=== PATIENT | male | born 1990 | race Caucasian/White ===

== ENCOUNTER 2021-09-24 07:49 | Day surgery (SDC) | payer OTHER, MEDICAID, SELFPAY ==
--- NOTE | 2021-09-23 13:09 | P.CONAN_ITS ---
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 Type 1 diabetes Social History Social History Patient Tobacco Use Status: Never used Tobacco Substance Use Type Other:: last marijuana hs Substance Use Frequency: Occasionally Are you DNR?: No Advance Directives: No Advance Directives Information Provided: Yes Meds Allergies Allergy/AdvReac Type Severity Reaction Status Date / Time tramadol Allergy Itching Verified 09/24/21 08:17 Home Medications Medication Instructions Recorded Confirmed Last Taken Type atorvastatin 40 mg tablet 1 tab PO DAILY 09/23/21 09/23/21 Unknown History blood sugar diagnostic (FreeStyle 09/23/21 09/23/21 Unknown History Lite Strips) blood-glucose meter (FreeStyle 09/23/21 09/23/21 Unknown History Lite Meter) blood-glucose sensor (Dexcom G6 09/23/21 09/23/21 Unknown History Sensor) blood-glucose transmitter (Dexcom 09/23/21 09/23/21 Unknown History G6 Transmitter) calcitriol 0.25 mcg capsule 1 cap PO DAILY 09/23/21 09/23/21 Unknown History carvedilol 12.5 mg tablet 1 tab PO BID 09/23/21 09/23/21 09/24/21 History gabapentin 100 mg capsule 3 cap PO TID 09/23/21 09/23/21 Unknown History insulin glargine-yfgn 100 unit/mL 48 unit subcut QAM 09/23/21 09/24/21 09/24/21 History (3 mL) subcutaneous pen (Semglee (insulin glargine-yfgn) Pen) lancets 28 gauge (FreeStyle 09/23/21 09/23/21 Unknown History Lancets) nifedipine 60 mg tablet,extended 1 tab PO DAILY 09/23/21 09/23/21 Unknown History release pen needle, diabetic 31 gauge x 09/23/21 09/23/21 Unknown History 3 (BD Ultra-Fine Mini Pen Needle) sertraline 100 mg tablet 1 tab PO DAILY 09/23/21 09/23/21 Unknown History torsemide 20 mg tablet 1 tab PO DAILY 09/23/21 09/23/21 Unknown History trazodone 50 mg tablet 1 tab PO BEDTIME 09/23/21 09/23/21 Unknown History Exam Exam Date and Time: September 23, 2021 1309 Narrative Narrative: EKG 07/2021 NSR @ 87 ECHO 04/2021 Nml LV size Mild conc LVH MIld reduced LV sys function LVEF 45-50% Nml RV size and function Mild MR Assessment and Plan Assessment Anesthesia Assessment: Chart Reviewed Documented by User: Thee Vale MD 09/24/21 10:51 HPI - Anesthesia Eval Consult details Narrative: 31yo M for Laparoscopic Insertion Peritoneal Dialysis Catheter No dialysis yet Last cardiac visit 04/2021 with change to BP meds d/t high BP (pt had run out of rx) Manual BP 195/120 on arrival to preop. Did not take Nifedipine per preop instructions. Will plan to give IV Hydral preop and proceed if able to achieve desirable BP control. 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 Type 1 diabetes Family History Family history of problems with anesthesia: No Surgical History History of Problems with Anesthesia: Yes Social History Social History Patient Tobacco Use Status: Never used Tobacco Substance Use Type Other:: last marijuana hs Substance Use Frequency: Occasionally Are you DNR?: No Advance Directives: No Advance Directives Information Provided: Yes Meds Allergies Allergy/AdvReac Type Severity Reaction Status Date / Time tramadol Allergy Itching Verified 09/24/21 08:17 Home Medications Medication Instructions Recorded Confirmed Last Taken Type atorvastatin 40 mg tablet 1 tab PO DAILY 09/23/21 09/23/21 Unknown [facility] 09/23/21 Unknown History Lite Strips) blood-glucose meter ([facility] 09/23/21 09/23/21 Unknown History Lite Meter) blood-glucose sensor (Dexcom G6 09/23/21 09/23/21 Unknown History Sensor) blood-glucose transmitter (Dexcom 09/23/21 09/23/21 Unknown History G6 Transmitter) calcitriol 0.25 mcg capsule 1 cap PO DAILY 09/23/21 09/23/21 Unknown History carvedilol 12.5 mg tablet 1 tab PO BID 09/23/21 09/23/21 09/24/21 History gabapentin 100 mg capsule 3 cap PO TID 09/23/21 09/23/21 Unknown History insulin glargine-yfgn 100 unit/mL 48 unit subcut QAM 09/23/21 09/24/21 09/24/21 History (3 mL) subcutaneous pen (Semglee (insulin glargine-yfgn) Pen) lancets 28 gauge (FreeStyle 09/23/21 09/23/21 Unknown History Lancets) nifedipine 60 mg tablet,extended 1 tab PO DAILY 09/23/21 09/23/21 Unknown History release pen needle, diabetic 31 gauge x 09/23/21 09/23/21 Unknown History 3/16 (BD Ultra-Fine Mini Pen Needle) sertraline 100 mg tablet 1 tab PO DAILY 09/23/21 09/23/21 Unknown History torsemide 20 mg tablet 1 tab PO DAILY 09/23/21 09/23/21 Unknown History trazodone 50 mg tablet 1 tab PO BEDTIME 09/23/21 09/23/21 Unknown History Exam Airway Mallampati Class: II TM Dist: >3cm Neck ROM: Full Assessment and Plan Assessment Anesthesia Assessment: Anesthesia Plan Discussed Final Anesthetic Review Family History of Problems with Anesthesia: No History of Problems with Anesthesia: Yes ASA Class: III Final Preanesthetic Review: No Changes in Pt Med Stat, Meds/Allgs Chart Reviewed, Consent Obtained/Reviewed and Anes Risks/Benef Reviewed Patient Risk: Intermediate Procedure Risk: Low Anesthetic Plan Anesthetic Plan: GA Disposition: Standard PACU
[2021-09-24] VITALS (14 sets, daily range): BP systolic 135–198; BP diastolic 87–123; PULSE 78–88; RESP 14–18; TEMP 36.4–36.6; O2SAT 96–99; BMI 20.4
[2021-09-24 08:19] LABS: Glucose, Whole Blood 182 mg/dL (60-115)
--- NOTE | 2021-09-24 08:31 | PC.NURSE ---
bp 198/123. manual 195/119. pt stated vomited and diarrhea one each this a.m. dr. rebolledo at bedside evaulating. pt denies chest pain. took coreg at 0730. afebrile
[2021-09-24 08:44] LABS: Anion Gap 19 (12-20); Carbon Dioxide 11 mmol/L (22-29); Chloride 114 mmol/L (96-108); Potassium 4.6 mmol/L (3.3-5.1); Sodium 139 mmol/L (135-145)
--- NOTE | 2021-09-24 08:55 | PC.NURSE ---
MD RAINES BY THE BEDSIDE EVALUATING PATIENT WITH ANESTHESIA.
[2021-09-24] MEDS: hydrALAZINE HCl 20 MG/ML VIAL 10 MG IVPUSH (09:14)
[2021-09-24] MEDS: 0.9 % Sodium Chloride 1,000 ML 50 ML IVCONT (09:19)
--- NOTE | 2021-09-24 11:53 | W.PM.OPN ---
Operative Note Operative Note Date of Service: 09/24/21 Narrative: Laparoscopic Insertion of Peritoneal Dialysis Catheter Pre-op Dx: Stage 5 CKD Post-op Dx: Stage 5 CKD Surgeon: Amy Kulkarni Procedure: Laparoscopic Insertion of Peritoneal Dialysis Catheter Anesthesia: GET and local Findings: Catheter positioned behind bladder and flushes well Procedure Summary: Patient was placed on the OR table in a supine position with both arms extended on padded arm boards. Patient was prepped and draped in a sterile fashion. A surgical timeout was performed. All incisions were infiltrated with local anesthesia. A Veress needle was inserted in the LUQ, midclavicular line of the abdomen. The abdomen was insufflated to a pressure of 15 mmHg. A 5mm visaport was inserted using a 5mm laparoscope. Subsequently, a 5mm port was inserted in the LLQ of the abdomen under direct visualization. An 8mm port was inserted left lateral to the umbilicus and entered the abdomen in the midline, just above the bladder. The PD catheter was inserted through this port and the internal cuff was positioned in the pre-peritoneal space. The other end of the catheter was brought out through a stab incision in the LLQ. The catheter flushed well. It was secured to the abdominal wall with a 2-0 silk tie, using a suture passer. The incisions were closed in layers after removing the trochars. The patient tolerated the procedure well.
[2021-09-24] MEDS: oxyCODONE HCl Immed Release 5 MG TABLET PO (12:32)
--- NOTE | 2021-09-24 12:54 | PHA.MEDREC ---
Pharmacy Consult ? Medication Reconciliation Pharmacy has completed the medication reconciliation. Reviewed med rec done by Elida Dickey
[2021-09-24] MEDS: NIFEdipine ER 60 MG TAB.ER.24 PO (13:11)
== END 2021-09-24 13:53 | disposition home or self-care (01) ==
PROVIDERS: Nurse Practitioner; PCP Internal Medicine; Visit Provider Transplant Surgery
PROC: (CPT 49324; principal; 2021-09-24 09:30)
DX: N18.5 Chronic kidney disease, stage 5 (principal); E10.22 Type 1 diabetes mellitus with diabetic chronic kidney disease; I13.0 Hypertensive heart and chronic kidney disease with heart failure and stage 1 through stage 4 chronic kidney disease, or unspecified chronic kidney disease; N18.4 Chronic kidney disease, stage 4 (severe); I50.9 Heart failure, unspecified; N17.9 Acute kidney failure, unspecified; Z79.4 Long term (current) use of insulin; Z79.899 Other long term (current) drug therapy; Z88.8 Allergy status to other drugs, medicaments and biological substances
CPT/HCPCS: 49324; 36415; 80051; 82947; C1752; J0690; J1170; J2370; J2405; J3010

== ENCOUNTER 2023-01-14 12:29 | Inpatient (IN) | payer OTHER, MEDICAID, SELFPAY ==
[2023-01-14] VITALS (10 sets, daily range): BP systolic 157–192; BP diastolic 66–108; PULSE 75–100; RESP 12–22; TEMP 32.6–37.1; O2SAT 70–100; BMI 23.3
--- NOTE | ~2023-01-14 | CT_ITS ---
EXAMINATION: CT HEAD WITHOUT CONTRAST CLINICAL INFORMATION: Unresponsive, hypoxia. COMPARISON: None TECHNIQUE: Contiguous axial imaging was performed from the skull base to vertex without intravenous administration of contrast. This CT examination was performed using dose optimization techniques as appropriate, variously including the following: *Automated exposure control *Adjustment of mA and/or kV according to patient size (this includes techniques or standardized protocols for targeted exams where dose is matched to indication/reason for exam; i.e. extremities or head) *Use of iterative reconstruction technique DLP: 804 mGy-cm FINDINGS: There is no evidence of acute intracranial hemorrhage or edematous territorial infarction. There is no abnormal attenuation within the brain parenchyma. Saba-white matter differentiation is preserved. The ventricles are normal in size and configuration. No evidence for obstructive hydrocephalus. No abnormal mass effect or midline shift. No extra-axial fluid collections. No acute soft tissue or osseous abnormalities. Mild mucosal thickening of the paranasal sinuses. No air-fluid levels. The mastoids and middle ear cavities are clear. CT/CT head/brain wo IV con IMPRESSION: No evidence of acute intracranial hemorrhage or edematous territorial infarction.
--- NOTE | ~2023-01-14 | CT_ITS ---
EXAMINATION: CT CHEST, ABDOMEN AND PELVIS WITHOUT CONTRAST CLINICAL INFORMATION: Unresponsive. Hypoxia. COMPARISON: None available. TECHNIQUE: Multidetector volumetric imaging was performed of the chest, abdomen and pelvis intravenous contrast. Oral contrast was not administered. Sagittal and coronal reformatted images were obtained on the technologist's workstation. This CT examination was performed using dose optimization techniques as appropriate, variously including the following: *Automated exposure control *Adjustment of mA and/or kV according to patient size (this includes techniques or standardized protocols for targeted exams where dose is matched to indication/reason for exam; i.e. extremities or head) *Use of iterative reconstruction technique DLP: 1977.67 mGy-cm FINDINGS: CHEST: CHEST WALL: Gynecomastia. Central vascular catheter terminates at the cavoatrial junction. AXILLA: No lymphadenopathy. MEDIASTINUM: Heart is normal in size. No mediastinal lymphadenopathy. No hilar lymphadenopathy. No pericardial effusion. CORONARY ARTERY CALCIFICATION: No significant coronary artery calcification appreciated on this exam. PLEURA: There is no pleural effusion. LUNGS: Few peribronchial nodules in the left lower lobe. Patchy airspace disease in the left lower lobe. Masslike consolidation measuring 3.3 2.9 x 2.9 cm with associated calcification in the medial right lower lobe with underlying cystic parenchymal changes. Central airways are patent. ABDOMEN AND PELVIS: ABDOMINAL AND PELVIC WALL: Unremarkable. LIVER AND BILIARY TREE: Unremarkable. GALLBLADDER: Unremarkable. PANCREAS: Unremarkable. SPLEEN: Unremarkable. ADRENAL GLANDS: Unremarkable. KIDNEYS AND URETERS: Nonobstructing bilateral renal calculi. No hydronephrosis. GASTROINTESTINAL TRACT: Mid small bowel wall thickening. No small bowel obstruction. Wall thickening of the splenic flexure through the sigmoid colon. Fecal impaction in the rectum. VASCULAR: Extensive arterial vascular calcifications. No abdominal aortic aneurysm. LYMPH NODES: Enlarged retroperitoneal, mesenteric and bilateral inguinal nodes. FREE FLUID: Small to moderate ascites. BLADDER: Decompressed with Hernandes catheter in place. PELVIC VISCERA: Unremarkable. OSSEOUS STRUCTURES: No destructive bone lesions. CT/CT abdomen pelvis wo IV con IMPRESSION: Small and large bowel wall thickening as described. Small to moderate ascites. Given the extensive arterial vascular calcification, bowel ischemia cannot be excluded on the basis of this examination. Masslike consolidation medial right lower lobe measuring 3.3 x 2.9 x 2.9 cm. Left lower lobe airspace disease with new peribronchial nodules. Aspiration pneumonia cannot be excluded. Advise clinical correlation and short-term goal follow-up imaging. Enlarged retroperitoneal, mesenteric and bilateral inguinal nodes.
--- NOTE | 2023-01-14 12:32 | ECG_ITS ---
Test Reason : UNRESPONSIVE Blood Pressure : / mmHG Vent. Rate : 093 BPM Atrial Rate : 093 BPM P-R Int : 160 ms QRS Dur : 110 ms QT Int : 398 ms P-R-T Axes : 061 047 058 degrees QTc Int : 494 ms Poor data quality, interpretation may be adversely affected Normal sinus rhythm Intra-ventricular conduction delay Otherwise normal ECG No previous ECGs available Referred By: rGicelda Ly Electronically Signed By:SKY SAHA MD
--- NOTE | 2023-01-14 12:35 | ED_ITS ---
HPI - Altered Mental Status General Chief Complaint: Altered Mental Status Stated Complaint: FOUND UNREPSONSIVE, HYPOGLYCEMIC Time Seen by Provider: 01/14/23 12:31 Source: family, EMS and old records reviewed Mode of arrival: EMS Limitations: altered mental status History of Present Illness HPI narrative: 33 yo male with history of DM1, ESRD previously on PD now appears to be on HD with dialysis catheter in right chest, s/p right BKA who presents to the ER from home via EMS after he was found unresponsive and hypoxic by his visiting nurse. Per EMS VNA spoke with the patient at 9:30 am and he was alert and normal. When she arrived around 11:30 she found him unresponsive on the couch. EMS was called and he was found hypoxic in the 70s, shallow breathing. His glucose was low. IV was established and he was given D10 and glucagon. He was placed on NRB O2 and brought to the ER for further evaluation. Patient arrives to the ER altered, lethargic but opens eyes to voice, nonverbal. Follows simple commands. POC 165. Rectal temp 91 degrees. He had bloody secretions in his mouth and required suctioning. MD complaint: altered mental status and decreased responsiveness Onset (ago): hour(s) Timing confirmed by: caregiver Severity: severe Context: diabetes Treatments prior to arrival: glucose and IV fluid Related Data Home Medications Medication Instructions Recorded Confirmed atorvastatin 40 mg tablet 1 tab PO DAILY 09/23/21 09/23/21 blood sugar diagnostic (FreeStyle 09/23/21 09/23/21 Lite Strips) blood-glucose meter (FreeStyle 09/23/21 09/23/21 Lite Meter kit) blood-glucose sensor (Dexcom G6 09/23/21 09/23/21 Sensor device) blood-glucose transmitter (Dexcom 09/23/21 09/23/21 G6 Transmitter device) calcitriol 0.25 mcg capsule 1 cap PO DAILY 09/23/21 09/23/21 carvedilol 12.5 mg tablet 1 tab PO BID 09/23/21 09/23/21 gabapentin 100 mg capsule 3 cap PO TID 09/23/21 09/23/21 insulin glargine-yfgn 100 unit/mL 48 unit subcut QAM 09/23/21 09/24/21 (3 mL) subcutaneous pen (Semglee (insulin glargine-yfgn) Pen) lancets 28 gauge (FreeStyle 09/23/21 09/23/21 Lancets) nifedipine 60 mg tablet,extended 1 tab PO DAILY 09/23/21 09/23/21 release pen needle, diabetic 31 gauge x 09/23/21 09/23/21 3/16 (BD Ultra-Fine Mini Pen Needle) sertraline 100 mg tablet 1 tab PO DAILY 09/23/21 09/23/21 torsemide 20 mg tablet 1 tab PO DAILY 09/23/21 09/23/21 trazodone 50 mg tablet 1 tab PO BEDTIME 09/23/21 09/23/21 Allergies Allergy/AdvReac Type Severity Reaction Status Date / Time tramadol Allergy Itching Verified 09/24/21 08:17 Review of Systems 2 Review of Systems: Yes Unobtainable due to mental condition and Unobtainable due to mental status [facility] Past Medical History Medical History (Updated 01/14/23 @ 16:38 by GAGAN Anglin) Insomnia Gastroparesis Cardiomyopathy Anxiety Major depressive disorder Type 1 diabetes 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 HTN (hypertension) Acute renal failure CKD (chronic kidney disease), stage IV Social History Social History Patient Tobacco Use Status: Never used Tobacco Advance Directives: Yes Advance Directives Information Provided: No Advance Directives on File: No Physical Exam ED Vital Signs: Vital Signs - 24 hr 01/14/23 12:36 01/14/23 13:05 01/14/23 14:00 Temperature 91.5 F L 90.6 F L 92.8 F L Pulse Rate 93 90 75 Respiratory Rate 16 22 H 18 Blood Pressure 191/106 H 181/107 H 167/100 H Pulse Oximetry 95 100 100 Oxygen Delivery Method Nasal Cannula Nasal Cannula Nasal Cannula Oxygen Flow Rate 3 3 01/14/23 15:00 01/14/23 15:28 Temperature 93.2 F L Pulse Rate 84 79 Respiratory Rate 15 12 Blood Pressure 169/95 H 160/99 H Pulse Oximetry 100 100 Oxygen Delivery Method Nasal Cannula Nasal Cannula Oxygen Flow Rate 3 3 BMI result Body Mass Index 23.3 Appearance: lethargic, disheveled male in his 30s, chronically ill appearing Head: normocephalic, atraumatic. Eyes: Pupils equal, round and reactive to light. ENT: Pharynx with blood secretions Neck: Normal inspection. Neck supple. CVS: Normal heart rate and rhythm. Pulses normal. right chest wall w/ HD catheter in place, dresssing falling off Respiratory: No respiratory distress. Breath sounds coarse throughout Abdomen: PD catheter in place in LLQ. Soft and nontender. +BS x4 Skin: Skin warm and dry. Normal skin color. Normal skin turgor. No rashes. Extremities: s/p right BKA, s/p left TMA, dry gangrene left heel Neuro/psych: lethargic, opens eyes to voice, nonverbal, follows simple commands, moves all extremities spontaneously Course Reevaluation(s) Reevaluation #1: spoke with patient's at the bedside - patient transitioned back to peritoneal dialysis early november. right chest HD cath not used since then. he has been experiencing more episodes of hypoglycemia w/ PD but usually is able to feel it and take some PO. he was in his usual state of health this morning. glucose high at 7am so given long acting insulin and 10 units of short acting per . no signs of symptoms of infection at home in the last 24 hours. Spoke with lamp shades supervisor at [facility] who is recommending possible placement of new temp HD line and holding off on HD given concern for sepsis. will d/w nephrology Time: 14:17 Reevaluation #2: Spoke with Dr. Ray from nephrology - recommending starting HD here using the HD line that is in place. mental status much improved temp up to 94.8 w/ alex harisher ready for admission Time: 15:06 Medications Administered Discontinued Medications Generic Name Dose Route Start Last Admin Trade Name Minnie PRN Reason Stop Dose Admin Sodium Chloride 1,000 mls @ 999 mls/hr 01/14/23 12:45 01/14/23 14:30 Ns IVCONT 01/14/23 13:45 Infused .Q1H1M CRYSTAL Infusion Calcium Gluconate 1 gm in 50 mls @ 50 mls/hr 01/14/23 12:48 01/14/23 14:00 Calcium Gluconate IV 01/14/23 13:47 Infused ONCE ONE Infusion Cefepime HCl 2 gm/ Sodium 50 mls @ 100 mls/hr 01/14/23 13:41 01/14/23 14:50 Chloride IV 01/14/23 14:10 Infused ONCE ONE Infusion Vancomycin HCl 1,500 mg/ 500 mls @ 333.333 mls/hr 01/14/23 14:15 01/14/23 15:23 Sodium Chloride IV 01/14/23 15:44 333.33 mls/hr ONCE ONE Administration Medical Decision Making Medical Decision Making [facility] Narrative: 33 yo male with history of DM1, ESRD on HD, s/p right BKA who presents to the ER for evaluation of unresponsiveness, hypoxia, and hypoglycemia. Glucose 160s on arrival. remains altered. Temp 90 rectally, 86 with temp pickens concern for infection. HD catheter without appropriate dressing ?line infection patient's mental status improved w/ warming. empiric abx cefepime and vanco given. records from [facility] reviewed spoke w/ who reports he has been on PD lately and NOT HD since Nov. Spoke with [facility] for transfer for PD, not accepting. Spoke w/ [facility] ICU who is recommending using HD line vs placing a new temp HD line Spoke w/ Nephrology who is ok w/ using HD line that is in place. CT Scan reviewed - 3cm RLL mass, ?aspiration. covered w/ abx. O2 weaned to 1L NC. no SOB. temp 95. ok for admission to the floor w/ close monitoring. Differential Diagnosis Differential Diagnoses: The differential diagnosis associated with the presentation includes sepsis, DKA, hypoglycemic seizure, uremia, pneumonia, intra-abdominal infection, encephalitis, UTI, infected dialysis catheter Admission/Observation Consideration of admission/observation: Escalation of care including admission/observation considered Consult Healthcare Provider Management of the patient was discussed with: Hospitalist and Fork Lift Technician Embroidery Finisher - recommending using HD catheter dr. abraham accepts Lab Data [facility] Lab Attestation statement: I reviewed the patient's lab results. no leukocytosis, mild anemia, uremia w/ elevated creatinine but K only 5.0 01/14/23 12:41 01/14/23 13:00 Labs: Lab Results 01/14/23 01/14/23 01/14/23 Range/Units 12:41 12:42 13:00 WBC 10.5 (4.8-10.8) X10*3/uL RBC 3.79 L (4.60-5.80) X10*6/uL Hgb 10.7 L (14.0-18.0) g/dl Hct 33.5 L (42.0-52.0) % MCV 88.4 (80.0-98.0) fL MCH 28.2 (27.0-33.0) pg MCHC 31.9 (31.0-36.0) g/dl RDW 13.8 (11.0-16.0) % Plt Count 178 (160-400) X10*3/uL MPV 10.2 (9.4-12.4) fL Immature Gran % (Auto) 0.8 H (0.0-0.4) % Neut % (Auto) 82.3 H (45-73) % Lymph % (Auto) 10.6 L (20-40) % [place] % (Auto) 4.1 (2-11) % Eos % (Auto) 1.7 (0-4) % Baso % (Auto) 0.5 (0-2) % Lymph # (Auto) 1.1 L (1.2-4.9) X10*3/uL [place] # (Auto) 0.4 (0.1-1.2) X10*3/uL Eos # (Auto) 0.2 (0.0-0.4) X10*3/uL Baso # (Auto) 0.1 (0.0-0.2) X10*3/uL Abs Immat Gran (auto) 0.08 H (0.00-0.03) X10*3/uL Absolute Neuts (auto) 8.6 H (2.0-8.3) x10*3/uL Absolute Nucleated RBC 0.000 (0.0-0.012) X10*3/uL Nucleated RBC % (auto) 0.0 (0.0-0.2) /100WBC VBG pH (7.32-7.43) VBG pCO2 mmHg VBG pO2 mmHg VBG HCO3 (22-26) mmol/L VBG O2 Saturation % VBG Base Excess mmol/L Sodium 142 (135-145) mmol/L Potassium 5.0 (3.3-5.1) mmol/L Chloride 102 (96-108) mmol/L Carbon Dioxide 17 L (22-29) mmol/L Anion Gap 28 H (12-20) BUN 56 H (9-16) mg/dL Creatinine 13.03 H* (0.5-1.4) mg/dL Estim Creat Clear Calc 8.8 Estimated GFR 4 POC Glucose (60-115) mg/dL Random Glucose 183 H (60-115) mg/dL Lactic Acid 0.6 (0.5-2.0) mmol/L Calcium 9.4 (8.4-10.2) mg/dL Magnesium 3.5 H* (1.6-2.6) mg/dL Total Bilirubin 0.4 (0.0-1.0) mg/dL Direct Bilirubin 0.2 (0.0-0.5) mg/dL AST 16 (5-37) U/L ALT 21 (0-40) U/L Alkaline Phosphatase 115 (39-117) U/L Ammonia 46 (13-55) umol/L Troponin I High Sens 16.8 (<3.5-35.0) ng/L Total Protein 7.6 (6.5-8.0) g/dL Albumin 3.8 (3.5-5.0) g/dL Lipase 101 H (8-78) U/L Beta-Hydroxybutyrate 0.32 H (0.02-0.27) mmol/L TSH 1.72 (0.32-4.0) uIU/mL Urine Color Urine Appearance Urine pH (5.0-9.0) Ur Specific [place] (1.005-1.025) Urine Protein (Neg-Trace) mg/dL Urine Glucose (UA) (Negative) mg/dL Urine Ketones (Negative) mg/dL Urine Blood (Negative) Urine Nitrite (Negative) Ur Leukocyte Esterase (Negative) Urine RBC (0-2) /HPF Urine WBC (0-5) /HPF Ur Squamous Epith Cells (0-2) /HPF Urine Bacteria (None Seen) Hyaline Casts (0-2) /LPF Salicylates < 5.0 L (15-30) mg/dL Urine Opiates Screen (Not Detect) Urine Fentanyl Screen (Not Detect) Acetaminophen < 17 (<30) mcg/mL Ur Barbiturates Screen (Not Detect) Ur Phencyclidine Scrn (Not Detect) Ur Amphetamines Screen (Not Detect) U Benzodiazepines Scrn (Not Detect) Urine Cocaine Screen (Not Detect) U Marijuana (THC) Screen (Not Detect) Ethyl Alcohol < 10 mg/dL Influenza Type A (PCR) NEGATIVE (Negative) Influenza Type B (PCR) NEGATIVE (Negative) RSV RNA Qual (PCR) NEGATIVE (Negative) SARS-CoV-2 RNA (RT-PCR) NEGATIVE (Negative) 01/14/23 01/14/23 01/14/23 Range/Units 13:09 13:10 13:40 WBC (4.8-10.8) X10*3/uL RBC (4.60-5.80) X10*6/uL Hgb (14.0-18.0) g/dl Hct (42.0-52.0) % MCV (80.0-98.0) fL MCH (27.0-33.0) pg MCHC (31.0-36.0) g/dl RDW (11.0-16.0) % Plt Count (160-400) X10*3/uL MPV (9.4-12.4) fL Immature Gran % (Auto) (0.0-0.4) % Neut % (Auto) (45-73) % Lymph % (Auto) (20-40) % [place] % (Auto) (2-11) % Eos % (Auto) (0-4) % Baso % (Auto) (0-2) % Lymph # (Auto) (1.2-4.9) X10*3/uL [place] # (Auto) (0.1-1.2) X10*3/uL Eos # (Auto) (0.0-0.4) X10*3/uL Baso # (Auto) (0.0-0.2) X10*3/uL Abs Immat Gran (auto) (0.00-0.03) X10*3/uL Absolute Neuts (auto) (2.0-8.3) x10*3/uL Absolute Nucleated RBC (0.0-0.012) X10*3/uL Nucleated RBC % (auto) (0.0-0.2) /100WBC VBG pH 7.37 (7.32-7.43) VBG pCO2 40 mmHg VBG pO2 159 mmHg VBG HCO3 23 (22-26) mmol/L VBG O2 Saturation 99.0 % VBG Base Excess -1.5 mmol/L Sodium (135-145) mmol/L Potassium (3.3-5.1) mmol/L Chloride (96-108) mmol/L Carbon Dioxide (22-29) mmol/L Anion Gap (12-20) BUN (9-16) mg/dL Creatinine (0.5-1.4) mg/dL Estim Creat Clear Calc Estimated GFR POC Glucose 188 H (60-115) mg/dL Random Glucose (60-115) mg/dL Lactic Acid (0.5-2.0) mmol/L Calcium (8.4-10.2) mg/dL Magnesium (1.6-2.6) mg/dL Total Bilirubin (0.0-1.0) mg/dL Direct Bilirubin (0.0-0.5) mg/dL AST (5-37) U/L ALT (0-40) U/L Alkaline Phosphatase (39-117) U/L Ammonia (13-55) umol/L Troponin I High Sens (<3.5-35.0) ng/L Total Protein (6.5-8.0) g/dL Albumin (3.5-5.0) g/dL Lipase (8-78) U/L Beta-Hydroxybutyrate (0.02-0.27) mmol/L TSH (0.32-4.0) uIU/mL Urine Color Yellow Urine Appearance Clear Urine pH 7.0 (5.0-9.0) Ur Specific [place] 1.020 (1.005-1.025) Urine Protein >=1000 (4+) H (Neg-Trace) mg/dL Urine Glucose (UA) >=1000 H (Negative) mg/dL Urine Ketones Negative (Negative) mg/dL Urine Blood Small (1+) H (Negative) Urine Nitrite Negative (Negative) Ur Leukocyte Esterase Negative (Negative) Urine RBC 11-20 H (0-2) /HPF Urine WBC 11-20 H (0-5) /HPF Ur Squamous Epith Cells 0-2 (0-2) /HPF Urine Bacteria None Seen (None Seen) Hyaline Casts 0-2 (0-2) /LPF Salicylates (15-30) mg/dL Urine Opiates Screen Not Detected (Not Detect) Urine Fentanyl Screen Not Detected (Not Detect) Acetaminophen (<30) mcg/mL Ur Barbiturates Screen Not Detected (Not Detect) Ur Phencyclidine Scrn Not Detected (Not Detect) Ur Amphetamines Screen Not Detected (Not Detect) U Benzodiazepines Scrn Not Detected (Not Detect) Urine Cocaine Screen Not Detected (Not Detect) U Marijuana (THC) Screen POSITIVE H (Not Detect) Ethyl Alcohol mg/dL Influenza Type A (PCR) (Negative) Influenza Type B (PCR) (Negative) RSV RNA Qual (PCR) (Negative) SARS-CoV-2 RNA (RT-PCR) (Negative) ABG Data Attestation ABG: I personally reviewed and interpreted this ABG as follows: Interpretation: no metabolic or respiratory derrangement Independent Interpretation I performed an independent interpretation of an: EKG and CT Scan Interpretation: ekg w/ sinus rhythm, HR 93, peaked T waves in V3-V5 CT head without acute bleed or edema CT chest with large right base mass/consolidation, agree w/ radiology read Radiology Impression Discussion of test interpretation with radiology: I have reviewed the radiologist's reading. Radiologist Impression: CT/CT head/brain wo IV con IMPRESSION: No evidence of acute intracranial hemorrhage or edematous territorial infarction. CT/CT chest wo IV con IMPRESSION: Small and large bowel wall thickening as described. Small to moderate ascites. Given the extensive arterial vascular calcification, bowel ischemia cannot be excluded on the basis of this examination. Masslike consolidation medial right lower lobe measuring 3.3 x 2.9 x 2.9 cm. Left lower lobe airspace disease with new peribronchial nodules. Aspiration pneumonia cannot be excluded. Advise clinical correlation and short-term goal follow-up imaging. Enlarged retroperitoneal, mesenteric and bilateral inguinal nodes. Independent Historian Clinical information obtained from an independent historian. History obtained from or confirmed by: Spouse and EMS External Record Review External record reviewed: Office record, Outpatient record, Prior outpatient labs, Prior outpatient radiology and Outside ED record Prescription Management I considered prescription management with: Antibiotic Chronic Conditions Patient?s care impacted by: Diabetes and Hypertension Social Determinants Patient?s care significantly limited by Social Determinants of Health including: Other Social Determinant of Health Critical Care Time Critical Care Time Critical Care Time: Yes Total Critical Care Time: 56 Attestation: I have personally provided critical care time exclusive of time spent on separately billable procedures. Time includes review of lab data, radiology results, discussion with consultants, and monitoring for potential decompensation. Intervention performed as documented. Discharge Plan Discharge Clinical Impression: Hypoglycemia, Acute metabolic encephalopathy, Mass of right lung Hypothermia Qualifiers: Encounter type: initial encounter Qualified Code(s): T68.XXXA - Hypothermia, initial encounter Patient Disposition: Admitted As Inpatient
[2023-01-14 12:47] LABS: MANUAL DIFF FLAG NO
[2023-01-14 12:48] LABS: Basophils Absolute Auto 0.1 X10*3/uL (0.0-0.2); Basophils Percent Auto 0.5 % (0-2); Eosinophils Absolute Auto 0.2 X10*3/uL (0.0-0.4); Eosinophils Percent Auto 1.7 % (0-4); Hematocrit 33.5 % (42.0-52.0); Hemoglobin 10.7 g/dl (14.0-18.0); Imm Gran Abs Auto 0.08 X10*3/uL (0.00-0.03); Imm Gran Pct Auto 0.8 % (0.0-0.4); Lymphocytes Absolute Auto 1.1 X10*3/uL (1.2-4.9); Lymphocytes Percent Auto 10.6 % (20-40); Mean Corpuscular HGB Conc 31.9 g/dl (31.0-36.0); Mean Corpuscular Hemoglobin 28.2 pg (27.0-33.0); Mean Corpuscular Volume 88.4 fL (80.0-98.0); Mean Platelet Volume 10.2 fL (9.4-12.4); Monocytes Absolute Auto 0.4 X10*3/uL (0.1-1.2); Monocytes Percent Auto 4.1 % (2-11); Neutrophils Absolute Auto 8.6 x10*3/uL (2.0-8.3); Neutrophils Percent Auto 82.3 % (45-73); Platelet Count 178 X10*3/uL (160-400); Red Blood Count 3.79 X10*6/uL (4.60-5.80); Red Cell Distribution Width 13.8 % (11.0-16.0); White Blood Count 10.5 X10*3/uL (4.8-10.8)
[2023-01-14] MEDS: Calcium Gluconate/NaCl,Iso-Osm 1 GM/50 ML PLAST..BAG IV (12:59)
[2023-01-14 13:01] LABS: Lactic Acid 0.6 mmol/L (0.5-2.0)
[2023-01-14] MEDS: 0.9 % Sodium Chloride 1,000 ML 999 ML IVCONT (13:05)
--- NOTE | 2023-01-14 13:06 | PC.NURSE ---
PATIENT HAD ORTEGA CATH TEMP SENSOR PLACED, READING 90.6 CORE TEMP WITH OUT PUT OF 35ML. PATIENT BILAT WRIST IV IN PLACE. PATIENT OPENS EYES WHEN BEING SPOKEN TO, DOES NOT SPEAK BACK ONLY MOANS. PATIENT RESPSONSIVE TO VERBAL STIMULI. UPON ARRIVAL TO ED GIVEN 4MG NARCAN INTRANASAL WITH NO EFFECT. PATIENT PLACED ON BAIRE HUGGER HIGH. MEDICATED PER MAY
[2023-01-14 13:09] LABS: Beta-Hydroxybutyrate 0.32 mmol/L (0.02-0.27)
[2023-01-14 13:10] LABS: Acetaminophen LAB < 17 mcg/mL (<30); Salicylate < 5.0 mg/dL (15-30)
[2023-01-14 13:11] LABS: Ammonia 46 umol/L (13-55)
[2023-01-14 13:14] LABS: Glucose, Whole Blood 188 mg/dL (60-115)
[2023-01-14 13:15] LABS: VBG Base Excess -1.5 mmol/L; VBG HCO3 23 mmol/L (22-26); VBG pCO2 40 mmHg; VBG pH 7.37 (7.32-7.43); VBG pO2 159 mmHg
[2023-01-14 13:15] LABS: Venous Blood Gas Refer to POC result
[2023-01-14 13:19] LABS: Troponin-I High Sensitivity 16.8 ng/L (<3.5-35.0)
[2023-01-14 13:37] LABS: Alanine Aminotransferase 21 U/L (0-40); Albumin Level 3.8 g/dL (3.5-5.0); Alkaline Phosphatase 115 U/L (39-117); Anion Gap 28 (12-20); Aspartate Amino Transferase 16 U/L (5-37); Bilirubin Direct 0.2 mg/dL (0.0-0.5); Bilirubin Total 0.4 mg/dL (0.0-1.0); Blood Urea Nitrogen 56 mg/dL (9-16); Calcium 9.4 mg/dL (8.4-10.2); Carbon Dioxide 17 mmol/L (22-29); Chloride 102 mmol/L (96-108); Creatinine Clr Calc Pharmacy 8.8; Estimated Glomerular Filt Rate 4; Ethanol < 10 mg/dL; Glucose Random 183 mg/dL (60-115); Lipase 101 U/L (8-78); Magnesium 3.5 mg/dL (1.6-2.6); Sodium 142 mmol/L (135-145); Total Protein 7.6 g/dL (6.5-8.0)
[2023-01-14 13:43] LABS: TSH reflex Free T4 1.72 uIU/mL (0.32-4.0)
[2023-01-14 13:49] LABS: Appearance Urine Clear; Color Urine Yellow; Glucose Urine UA >=1000 mg/dL (Negative); Leukocyte Esterase Urine Negative (Negative); Nitrite Urine Negative (Negative); UMIC TRIGGER UACC YES; Urine Blood Small (1+) (Negative); Urine Ketones Negative (Negative); Urine Protein >=1000 (4+) mg/dL (Neg-Trace)
[2023-01-14 13:57] LABS: Influenza A PCR NEGATIVE (Negative); Influenza B PCR NEGATIVE (Negative); Resp Syncy Virus RNA Qual PCR NEGATIVE (Negative); SARS COV2 PCR INHOUSE NEGATIVE (Negative)
[2023-01-14 14:01] LABS: Amphetamine Screen Urine Not Detected (Not Detect); Barbiturates, Urine Not Detected (Not Detect); Benzodiazepines Screen Urine Not Detected (Not Detect); Cannabinoid Screen Urine POSITIVE (Not Detect); Cocaine Screen Urine Not Detected (Not Detect); Fentanyl, urine Not Detected (Not Detect); Opiate Screen Urine Not Detected (Not Detect); Phencyclidine Screen Urine Not Detected (Not Detect)
[2023-01-14 14:06] LABS: Bacteria Urine None Seen (None Seen); Hyaline Casts Urine 0-2 /LPF (0-2); Squamous Epithelial Cell Urine 0-2 /HPF (0-2); UACC Culture Trigger YES
[2023-01-14] MEDS: cefEPime HCl 2 GM in 0.9 % Sodium Chloride 50 ML IV (14:15)
[2023-01-14] MEDS: vancomycin HCL 1,500 MG in 0.9 % Sodium Chloride 500 ML 333.33 MG IV (15:23)
[2023-01-14 16:43] LABS: Glucose, Whole Blood 105 mg/dL (60-115)
--- NOTE | 2023-01-14 17:03 | P.HPHOSP_ITS ---
History of Present Illness Date of Service: 01/14/23 Chief Complaint: Hypoglycemia 33 yo male with history of DM1, ESRD previously on PD now appears to be on HD with dialysis catheter in right chest, s/p right BKA who presents to the ER from home via EMS after he was found unresponsive and hypoxic by his visiting nurse. Per EMS VNA spoke with the patient at 9:30 am and he was alert and normal. When she arrived around 11:30 she found him unresponsive on the couch. EMS was called and he was found hypoxic in the 70s, shallow breathing. His glucose was low. IV was established and he was given D10 and glucagon. He was placed on NRB O2 and brought to the ER for further evaluation. Upon discussing with , patient's sugars have been elevated with peritoneal dialysis which have been expected. Insulin was adjusted (long-acting.) This a.m. she gave instructed dose insulin and later that morning was found unresponsive and hypotensive by EMS. He received dextrose in the rader placed on a non-rebreather and presented to the emergency room. Upon presentation sugars were normal however rectal temp was 91 degrees. He was placed on the Alma Hugger. The time of admission temperature is approximately [address] done in the ER showed masslike consolidation in the medial right lower lobe suspicious for aspiration pneumonia. 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 Glucose (Glucose Gel 15 Gm Gel..Gram.) 15 gm PO Q15M PRN; Protocol PRN Reason: per Hypoglycemia Standing Ord. Heparin Sodium (Porcine) (Heparin Sodium,Porcine 5,000 Unit/Ml Vial) 5,000 unit SUBCUT Q12H [facility] Insulin Human Lispro (Insulin Lispro 100 Unit/Ml 3 Ml Vial) 0 unit SUBCUT QIDACHS [facility]; Protocol Sodium Chloride (0.9 % Sodium Chloride Flush 3 Ml Syringe) 3 ml IVFLUSH QSHIFT [facility] Home Medications Medication Instructions Recorded Confirmed Last Taken Type atorvastatin 40 mg tablet 1 tab PO DAILY 09/23/21 09/23/21 Unknown History blood sugar diagnostic (FreeStyle 09/23/21 09/23/21 Unknown History Lite Strips) [facility] 09/23/21 Unknown History Lite Meter kit) blood-glucose sensor (Dexcom G6 09/23/21 09/23/21 Unknown History Sensor device) blood-glucose transmitter (Dexcom 09/23/21 09/23/21 Unknown History G6 Transmitter device) calcitriol 0.25 mcg capsule 1 cap PO DAILY 09/23/21 09/23/21 Unknown History carvedilol 12.5 mg tablet 1 tab PO BID 09/23/21 09/23/21 09/24/21 History gabapentin 100 mg capsule 3 cap PO TID 09/23/21 09/23/21 Unknown History insulin glargine-yfgn 100 unit/mL 48 unit subcut QAM 09/23/21 09/24/21 09/24/21 History (3 mL) subcutaneous pen (Semglee (insulin glargine-yfgn) Pen) lancets 28 gauge (FreeStyle 09/23/21 09/23/21 Unknown History Lancets) nifedipine 60 mg tablet,extended 1 tab PO DAILY 09/23/21 09/23/21 Unknown History release pen needle, diabetic 31 gauge x 09/23/21 09/23/21 Unknown History 06/10 (BD Ultra-Fine Mini Pen Needle) sertraline 100 mg tablet 1 tab PO DAILY 09/23/21 09/23/21 Unknown History torsemide 20 mg tablet 1 tab PO DAILY 09/23/21 09/23/21 Unknown History trazodone 50 mg tablet 1 tab PO BEDTIME 09/23/21 09/23/21 Unknown History Physical Exam 2 Vital Signs and Narrative: Vital Signs: Last Vital Signs Temp 94.8 F L 01/14/23 16:35 Pulse 82 01/14/23 16:35 Resp 14 01/14/23 16:35 BP 190/91 H 01/14/23 16:35 Pulse Ox 100 01/14/23 16:35 O2 Del Method Nasal Cannula 01/14/23 15:28 O2 Flow Rate 3 01/14/23 15:28 Oxygen Flow Rate 2 01/14/23 12:36 BMI result Body Mass Index 23.3 Const: Other: Somnolent but arousable. No acute distress Chest: Other: Hemodialysis catheter right chest wall Resp: Other: Diminished but clear all rader no rales rhonchi or wheezes Cardio: Other: No S4; positive S1-S2; no S3 murmurs rubs or gallops GI: Other: Soft nontender nondistended normoactive bowel sounds. Peritoneal dialysis catheter and left lower quadrant. Site clean dry and intact Extrem: Other: Right BKA; left TMA Results Labs 01/14/23 12:41 01/14/23 13:00 Labs: Laboratory Results - last 24 hr 01/14/23 01/14/23 01/14/23 12:41 12:42 13:00 MCV 88.4 MCH 28.2 MCHC 31.9 RDW 13.8 Plt Count 178 MPV 10.2 Immature Gran % (Auto) 0.8 H Neut % (Auto) 82.3 H Lymph % (Auto) 10.6 L Esmeralda % (Auto) 4.1 Eos % (Auto) 1.7 Baso % (Auto) 0.5 Lymph # (Auto) 1.1 L Esmeralda # (Auto) 0.4 Eos # (Auto) 0.2 Baso # (Auto) 0.1 Abs Immat Gran (auto) 0.08 H Absolute Neuts (auto) 8.6 H Absolute Nucleated RBC 0.000 Nucleated RBC % (auto) 0.0 VBG pH VBG pCO2 VBG pO2 VBG HCO3 VBG O2 Saturation VBG Base Excess Anion Gap 28 H Estim Creat Clear Calc 8.8 Estimated GFR 4 POC Glucose Random Glucose 183 H Lactic Acid 0.6 Calcium 9.4 Magnesium 3.5 H* Total Bilirubin 0.4 Direct Bilirubin 0.2 AST 16 ALT 21 Alkaline Phosphatase 115 Ammonia 46 Total Protein 7.6 Albumin 3.8 Lipase 101 H Beta-Hydroxybutyrate 0.32 H TSH 1.72 Urine Color Urine Appearance Urine pH Ur Specific [place] Urine Protein Urine Glucose (UA) Urine Ketones Urine Blood Urine Nitrite Ur Leukocyte Esterase Urine RBC Urine WBC Ur Squamous Epith Cells Urine Bacteria Hyaline Casts Salicylates < 5.0 L Urine Opiates Screen Urine Fentanyl Screen Acetaminophen < 17 Ur Barbiturates Screen Ur Phencyclidine Scrn Ur Amphetamines Screen U Benzodiazepines Scrn Urine Cocaine Screen U Marijuana (THC) Screen Ethyl Alcohol < 10 Influenza Type A (PCR) NEGATIVE Influenza Type B (PCR) NEGATIVE RSV RNA Qual (PCR) NEGATIVE SARS-CoV-2 RNA (RT-PCR) NEGATIVE 01/14/23 01/14/23 01/14/23 13:09 13:10 13:40 MCV MCH MCHC RDW Plt Count MPV Immature Gran % (Auto) Neut % (Auto) Lymph % (Auto) Esmeralda % (Auto) Eos % (Auto) Baso % (Auto) Lymph # (Auto) Esmeralda # (Auto) Eos # (Auto) Baso # (Auto) Abs Immat Gran (auto) Absolute Neuts (auto) Absolute Nucleated RBC Nucleated RBC % (auto) VBG pH 7.37 VBG pCO2 40 VBG pO2 159 VBG HCO3 23 VBG O2 Saturation 99.0 VBG Base Excess -1.5 Anion Gap Estim Creat Clear Calc Estimated GFR POC Glucose 188 H Random Glucose Lactic Acid Calcium Magnesium Total Bilirubin Direct Bilirubin AST ALT Alkaline Phosphatase Ammonia Total Protein Albumin Lipase Beta-Hydroxybutyrate TSH Urine Color Yellow Urine Appearance Clear Urine pH 7.0 Ur Specific [place] 1.020 Urine Protein >=1000 (4+) H Urine Glucose (UA) >=1000 H Urine Ketones Negative Urine Blood Small (1+) H Urine Nitrite Negative Ur Leukocyte Esterase Negative Urine RBC 11-20 H Urine WBC 11-20 H Ur Squamous Epith Cells 0-2 Urine Bacteria None Seen Hyaline Casts 0-2 Salicylates Urine Opiates Screen Not Detected Urine Fentanyl Screen Not Detected Acetaminophen Ur Barbiturates Screen Not Detected Ur Phencyclidine Scrn Not Detected Ur Amphetamines Screen Not Detected U Benzodiazepines Scrn Not Detected Urine Cocaine Screen Not Detected U Marijuana (THC) Screen POSITIVE H Ethyl Alcohol Influenza Type A (PCR) Influenza Type B (PCR) RSV RNA Qual (PCR) SARS-CoV-2 RNA (RT-PCR) 01/14/23 16:37 MCV MCH MCHC RDW Plt Count MPV Immature Gran % (Auto) Neut % (Auto) Lymph % (Auto) Esmeralda % (Auto) Eos % (Auto) Baso % (Auto) Lymph # (Auto) Esmeralda # (Auto) Eos # (Auto) Baso # (Auto) Abs Immat Gran (auto) Absolute Neuts (auto) Absolute Nucleated RBC Nucleated RBC % (auto) VBG pH VBG pCO2 VBG pO2 VBG HCO3 VBG O2 Saturation VBG Base Excess Anion Gap Estim Creat Clear Calc Estimated GFR POC Glucose 105 Random Glucose Lactic Acid Calcium Magnesium Total Bilirubin Direct Bilirubin AST ALT Alkaline Phosphatase Ammonia Total Protein Albumin Lipase Beta-Hydroxybutyrate TSH Urine Color Urine Appearance Urine pH Ur Specific [place] Urine Protein Urine Glucose (UA) Urine Ketones Urine Blood Urine Nitrite Ur Leukocyte Esterase Urine RBC Urine WBC Ur Squamous Epith Cells Urine Bacteria Hyaline Casts Salicylates Urine Opiates Screen Urine Fentanyl Screen Acetaminophen Ur Barbiturates Screen Ur Phencyclidine Scrn Ur Amphetamines Screen U Benzodiazepines Scrn Urine Cocaine Screen U Marijuana (THC) Screen Ethyl Alcohol Influenza Type A (PCR) Influenza Type B (PCR) RSV RNA Qual (PCR) SARS-CoV-2 RNA (RT-PCR) Imaging Radiologist's Impressions: Impressions Abdomen/Pelvis CT 01/14/23 14:38 IMPRESSION: Small and large bowel wall thickening as described. Small to moderate ascites. Given the extensive arterial vascular calcification, bowel ischemia cannot be excluded on the basis of this examination. Masslike consolidation medial right lower lobe measuring 3.3 x 2.9 x 2.9 cm. Left lower lobe airspace disease with new peribronchial nodules. Aspiration pneumonia cannot be excluded. Advise clinical correlation and short-term goal follow-up imaging. Enlarged retroperitoneal, mesenteric and bilateral inguinal nodes. Chest CT 01/14/23 14:38 IMPRESSION: Small and large bowel wall thickening as described. Small to moderate ascites. Given the extensive arterial vascular calcification, bowel ischemia cannot be excluded on the basis of this examination. Masslike consolidation medial right lower lobe measuring 3.3 x 2.9 x 2.9 cm. Left lower lobe airspace disease with new peribronchial nodules. Aspiration pneumonia cannot be excluded. Advise clinical correlation and short-term goal follow-up imaging. Enlarged retroperitoneal, mesenteric and bilateral inguinal nodes. Head CT 01/14/23 14:38 IMPRESSION: No evidence of acute intracranial hemorrhage or edematous territorial infarction. Assessment and Plan (1) Hypoglycemia: Status: Acute (2) Hypothermia: Qualifiers: Encounter type: initial encounter Qualified Code(s): T68.XXXA - Hypothermia, initial encounter Status: Acute (3) Pneumonia: Qualifiers: Pneumonia type: aspiration pneumonia Aspiration pneumonia type: u nspecified Laterality: right Status: Acute (4) End-stage renal disease on hemodialysis: Status: Acute Plan 33-year-old male with end-stage renal disease secondary to type 1 diabetes presents with hypoglycemic episode. states they were transition to peritoneal dialysis as a trial; sugars have increased as expected with peritoneal dialysis therefore long-acting insulin was increased. states patient got recommended dose of insulin this morning it was fine; VNA came patient was found unresponsive. When EMS arrived he was found to be hypoglycemic and given dextrose with good results. He was hypoxic and placed on a non-rebreather and transmitted to emergency room. In the emergency room he was found to be hypothermic and placed on a Alma Hugger with good results. CT of the chest demonstrated a right-sided mass consistent with aspiration 1. Aspiration pneumonia with hypothermia (slowly resolving) -continue Alma Hugger and directed temp greater than 97.5 times 2 -given vancomycin and cefepime in the ER. Will continue vancomycin and cefepime renally dosed -supplemental O2 to maintain sats greater than or equal to 90% 2. Type 1 diabetes -will cover with lispro correctional scale; will hold long-acting insulin until appropriate -ADA diet 3. ESRD on HD (blood cultures x2 taken. ER discuss with Renal wishes to do hemodialysis through port in a.m..) -consult nephrology -follow renals/divalent -HD in a.m. at the discretion of Nephrology -cefepime dose can be adjusted based on frequency of dialysis in a.m. 4. Hypertension -poorly controlled however question related to initial presentation -follow clinically; may utilize hydralazine as needed. -restart home regimen in a.m. 5. Peripheral vascular disease forward/status post amputation with phantom pain -utilizes Dilaudid at home as needed -will prescribe on a p.r.n. basis while in house Full code Heparin (renally dosed) Requires at least 2 midnights going forward of inpatient hospitalization to treat aspiration pneumonia with IV antibiotics and to utilize hemodialysis in favor a peritoneal dialysis. This cannot be achieved a lesser acute facility Time Spent With Patient Time: Total time managing care of this patient today ____ minutes. Quality Stroke Does the patient have a stroke diagnosis?: No VTE Prior VTE?: No VTE Risk Level:: Medical - moderate - high VTE Device Contraindication: Treatment Not Indicated VTE Drug Contraindication: N/A - Med Ordered
[2023-01-14] MEDS: Heparin Sodium,Porcine 5,000 UNIT/ML VIAL 5000 UNIT SUBCUT (17:39)
--- NOTE | 2023-01-14 17:44 | PC.NURSE ---
patient has become increasingly more alert, able to participate in his medical care, patients states he only urinates once a day, patient bag was emptied after pickens placement and new 10ml urine in bag. patient on [facility] core temp 95.9. patient ate turkey sandwich, drank orange juice and given water pitcher. call kelly within reach, no signs of distress
--- NOTE | 2023-01-14 19:12 | PHA.MEDREC ---
Pharmacy Consult ? Medication Reconciliation Pharmacy has completed the medication reconciliation. Per spouse, pt's doxazosin increased to 4 mg bedtime, nifedipine is 30 mg bid, and torsemide is 40 mg daily
--- NOTE | 2023-01-14 20:01 | PC.NURSE ---
This RN attempt to call report. RN on [facility] unavailable.
--- NOTE | 2023-01-14 20:02 | MHC.EDTECH ---
PATIENT WAS A 2 ASST TRANSFER TO BEDSIDE COMMODE ,PT HAD LARGE AMOUNT OF SOFT DARK STOOL ,CARE GIVEN ,PT BACK IN BED WATCHING TELEVISION .
[2023-01-14 20:53] LABS: Glucose, Whole Blood 83 mg/dL (60-115)
[2023-01-14] MEDS: carvediloL 25 MG TABLET PO (21:45)
[2023-01-14] MEDS: Doxazosin Mesylate 2 MG TABLET 4 MG PO (21:46)
[2023-01-14] MEDS: Gabapentin 300 MG CAPSULE PO (21:47)
[2023-01-14] MEDS: traZODone HCL 50 MG TABLET PO (21:47)
[2023-01-14] MEDS: HYDROmorphone HCl 2 MG TABLET PO (21:47)
[2023-01-14] MEDS: NIFEdipine ER 30 MG TAB.ER.24 PO (21:47)
[2023-01-14] MEDS: 0.9 % Sodium Chloride Flush 3 ML SYRINGE IVFLUSH ×2 (21:48→21:55)
[2023-01-14] MEDS: LORazepam 0.5 MG TABLET PO (21:55)
[2023-01-15] VITALS (9 sets, daily range): BP systolic 156–178; BP diastolic 82–95; PULSE 84–109; RESP 14–20; TEMP 36.2–37.3; O2SAT 79–100
[2023-01-15] MEDS: Sacubitril/Valsartan 97/103 1 TAB TABLET PO ×3 (00:38→21:11)
[2023-01-15] MEDS: Dextrose 50 % 25 GM/50 ML SYRINGE IVPUSH (05:58)
--- NOTE | 2023-01-15 06:06 | PM.EVENT ---
Event Note Date of Service: 01/15/23 Event Note: Rapid response was called on the patient as he was unresponsive. Patient was sweaty and unresponsive upon arrival. POC glucose was 16. Received IV dextrose D50 push with improvement in POC glucose and mentation. Closely monitor blood sugar with repeat POC glucose in 15 minutes. Time Spent With Patient Time: Total time managing care of this patient today ____ minutes.
[2023-01-15 06:22] LABS: Glucose, Whole Blood 109 mg/dL (60-115)
[2023-01-15 06:22] LABS: Glucose, Whole Blood 92 mg/dL (60-115)
[2023-01-15 06:22] LABS: Glucose, Whole Blood 16 mg/dL (60-115)
[2023-01-15 06:29] LABS: MANUAL DIFF FLAG NO
[2023-01-15 06:37] LABS: Basophils Absolute Auto 0.1 X10*3/uL (0.0-0.2); Basophils Percent Auto 0.4 % (0-2); Eosinophils Absolute Auto 0.2 X10*3/uL (0.0-0.4); Eosinophils Percent Auto 1.2 % (0-4); Hematocrit 29.8 % (42.0-52.0); Hemoglobin 9.7 g/dl (14.0-18.0); Imm Gran Abs Auto 0.08 X10*3/uL (0.00-0.03); Imm Gran Pct Auto 0.6 % (0.0-0.4); Lymphocytes Absolute Auto 0.7 X10*3/uL (1.2-4.9); Lymphocytes Percent Auto 5.5 % (20-40); Mean Corpuscular HGB Conc 32.6 g/dl (31.0-36.0); Mean Corpuscular Hemoglobin 28.4 pg (27.0-33.0); Mean Corpuscular Volume 87.4 fL (80.0-98.0); Mean Platelet Volume 10.3 fL (9.4-12.4); Monocytes Absolute Auto 0.4 X10*3/uL (0.1-1.2); Monocytes Percent Auto 2.8 % (2-11); Neutrophils Absolute Auto 11.3 x10*3/uL (2.0-8.3); Neutrophils Percent Auto 89.5 % (45-73); Platelet Count 176 X10*3/uL (160-400); Red Blood Count 3.41 X10*6/uL (4.60-5.80); Red Cell Distribution Width 13.9 % (11.0-16.0); White Blood Count 12.7 X10*3/uL (4.8-10.8)
[2023-01-15 06:40] LABS: Glucose, Whole Blood 83 mg/dL (60-115)
[2023-01-15 06:51] LABS: Alanine Aminotransferase 16 U/L (0-40); Albumin Level 3.4 g/dL (3.5-5.0); Alkaline Phosphatase 96 U/L (39-117); Anion Gap 28 (12-20); Aspartate Amino Transferase 10 U/L (5-37); Bilirubin Total 0.3 mg/dL (0.0-1.0); Blood Urea Nitrogen 65 mg/dL (9-16); Calcium 9.2 mg/dL (8.4-10.2); Carbon Dioxide 19 mmol/L (22-29); Chloride 100 mmol/L (96-108); Creatinine Clr Calc Pharmacy 8.2; Estimated Glomerular Filt Rate 4; Glucose Random 85 mg/dL (60-115); Potassium 5.1 mmol/L (3.3-5.1); Sodium 142 mmol/L (135-145); Total Protein 6.5 g/dL (6.5-8.0)
[2023-01-15 07:22] LABS: Glucose, Whole Blood 75 mg/dL (60-115)
[2023-01-15] MEDS: Dextrose 5 % and Lactated Ring 1,000 ML 100 ML IVCONT ×2 (07:31→17:35)
--- NOTE | 2023-01-15 07:31 | PC.NURSE ---
Pt. admitted at approx. 2044 from ED via stretcher; Alert and oriented x3. Pt. denies any sx at this time and states he is aware when POC getting low. Pt. POC at hs 81; PT. received orange juice and declined a snack. Pt. denied dyspnea overnight. Afebrile and NSR to ST low 100's on playground monitor. Pt. awakened easily to voice overnight. Pt. heard snoring in room at 0550 and unable to awaken pt. by sternal rub and pt. profusely diaphoretc. POC at 0555 was 16. Rapid Response also called and team at bedside including Dr. Díaz. Pt. given IV Dextrose 50% as ordered and pt. awakened but slowly. 0602 POC 109-Dr. Díaz aware. POC at [address] Díaz recheck POC at 0635. That POC was 83, reported to Dr. Díaz and to recheck POC at 0715, for which day RN notified of task. Pt. remains awake but quiet affect. Pt. given OJ at 0700. Handover to Neo FLETCHER.
[2023-01-15 08:59] LABS: Glucose, Whole Blood 116 mg/dL (60-115)
[2023-01-15] MEDS: Atorvastatin Calcium 40 MG TABLET PO (09:04)
[2023-01-15] MEDS: Gabapentin 300 MG CAPSULE PO ×2 (09:04→21:10)
[2023-01-15] MEDS: Torsemide 20 MG TABLET 40 MG PO (09:04)
[2023-01-15] MEDS: Sertraline HCL 100 MG TABLET PO (09:04)
[2023-01-15] MEDS: Clopidogrel Bisulfate 75 MG TABLET PO (09:04)
[2023-01-15] MEDS: carvediloL 25 MG TABLET PO ×2 (09:04→21:11)
[2023-01-15] MEDS: NIFEdipine ER 30 MG TAB.ER.24 PO ×2 (09:04→21:12)
[2023-01-15] MEDS: Omeprazole 20 MG CAPSULE.DR PO (09:04)
[2023-01-15] MEDS: Heparin Sodium,Porcine 5,000 UNIT/ML VIAL 5000 UNIT SUBCUT ×2 (09:05→17:25)
[2023-01-15 09:55] LABS: Glucose, Whole Blood 128 mg/dL (60-115)
[2023-01-15 11:07] LABS: Glucose, Whole Blood 142 mg/dL (60-115)
--- NOTE | 2023-01-15 14:58 | HO.PM.IMPN ---
Subjective Subjective Date of Service: 01/16/23 Interval History: Not offering any complaints, noted to have blood sugars 16 this morning ,treated with D10 now placed on IV D5W,npo since was unresponsive on admission. Review of Systems All other system reviewed and negative Physical Exam Vital Signs: Vital Signs: Last Vital Signs Temp 98.5 F 01/15/23 14:56 Pulse 94 01/15/23 14:56 Resp 20 01/15/23 14:56 BP 164/87 H 01/15/23 14:56 Pulse Ox 95 01/15/23 14:56 O2 Del Method Room Air 01/15/23 14:56 O2 Flow Rate 1 01/14/23 17:43 FiO2 98 01/15/23 00:00 Oxygen Flow Rate 2 01/14/23 12:36 BMI result Body Mass Index 23.3 Const: Other: General awake alert x3, resting comfortably in no acute distress. Neck no JVD. CVS regular rate rhythm, hemodialysis catheter right chest wall Respiratory lungs clear to auscultation, no respiratory distress, no wheeze, no rhonchi. Gastrointestinal abdomen soft, non tender, bowel sounds audible, no guarding , no rigidity. PD catheter left lower quadrant. Extremities right BKA, left TMA Neuro nonfocal patient moving all 4 extremity speech clear. Skin no rash Objective Data Active Medications Atorvastatin Calcium (Atorvastatin Calcium 40 Mg Tablet) 40 mg PO DAILY [facility] Last Admin: 01/15/23 09:04 Dose: 40 mg Documented By: JOÃO Carvedilol (Carvedilol 25 Mg Tablet) 25 mg PO BID [facility]; Protocol Last Admin: 01/15/23 09:04 Dose: 25 mg Documented By: JOÃO Cinacalcet (Cinacalcet Hcl 30 Mg Tablet) 30 mg PO MOWEFR [facility] Clopidogrel Bisulfate (Clopidogrel Bisulfate 75 Mg Tablet) 75 mg PO DAILY [facility] Last Admin: 01/15/23 09:04 Dose: 75 mg Documented By: JOÃO Dextrose (Dextrose 50 % 25 Gm/50 Ml Syringe) 25 gm IVPUSH Q15M PRN; Protocol PRN Reason: per Hypoglycemia Standing Ord. Last Admin: 01/15/23 05:58 Dose: 25 gm Documented By: JOÃO Doxazosin Mesylate (Doxazosin Mesylate 2 Mg Tablet) 4 mg PO BEDTIME [facility]; Protocol Last Admin: 01/14/23 21:46 Dose: 4 mg Documented By: JOÃO Gabapentin (Gabapentin 300 Mg Capsule) 300 mg PO BID [facility] Last Admin: 01/15/23 09:04 Dose: 300 mg Documented By: JOÃO Glucose (Glucose Gel 15 Gm Gel..Gram.) 15 gm PO Q15M PRN; Protocol PRN Reason: per Hypoglycemia Standing Ord. Heparin Sodium (Porcine) (Heparin Sodium,Porcine 5,000 Unit/Ml Vial) 5,000 unit SUBCUT Q12H [facility] Last Admin: 01/15/23 09:05 Dose: 5,000 unit Documented By: JOÃO Hydromorphone HCl (Hydromorphone Hcl 2 Mg Tablet) 2 mg PO BEDTIME PRN PRN Reason: Pain, Severe (Pain Scale 7-10) Last Admin: 01/14/23 21:47 Dose: 2 mg Documented By: JOÃO Vancomycin HCl 500 mg/ Sodium (Chloride) 110 mls @ 110 mls/hr IV MOWEFR ONE Stop: 01/14/23 18:13 Dextrose/Lactated Ringer's (D5lr) 1,000 mls @ 100 mls/hr IVCONT .Q10H [facility] Last Admin: 01/15/23 07:31 Dose: 100 mls/hr Documented By: KIERSTEN Insulin Human Lispro (Insulin Lispro 100 Unit/Ml 3 Ml Vial) 0 unit SUBCUT QIDACHS [facility]; Protocol Last Admin: 01/15/23 12:30 Dose: Not Given Documented By: ANTONELLA Non-Admin Reason: No Insulin Coverage Lorazepam (Lorazepam 0.5 Mg Tablet) 0.5 mg PO Q6H PRN PRN Reason: anxiety Last Admin: 01/14/23 21:55 Dose: 0.5 mg Documented By: JOÃO Nifedipine (Nifedipine Er 30 Mg Tab.Er.24) 30 mg PO BID [facility]; Protocol Last Admin: 01/15/23 09:04 Dose: 30 mg Documented By: JOÃO Non-Formulary Medication (Ferric Citrate [Auryxia]) 3 tab PO TID [facility] Omeprazole (Omeprazole 20 Mg Kali.) 20 mg PO DAILY@0630 [facility] Last Admin: 01/15/23 09:04 Dose: 20 mg Documented By: JOÃO Pharmacy Consult (Consult Rx Vancomycin Dosing) 1 each MISCELLANE DAILY PRN PRN Reason: Consult order Sacubitril/Valsartan (Sacubitril/Valsartan 97/103 1 Tab Tablet) 1 tab PO BID [facility]; Protocol Last Admin: 01/15/23 09:10 Dose: 1 tab Documented By: JOÃO Sertraline HCl (Sertraline Hcl 100 Mg Tablet) 100 mg PO DAILY [facility] Last Admin: 01/15/23 09:04 Dose: 100 mg Documented By: JOÃO Sodium Chloride (0.9 % Sodium Chloride Flush 3 Ml Syringe) 3 ml IVFLUSH QSHIFT [facility] Last Admin: 01/14/23 21:55 Dose: 3 ml Documented By: JOÃO Torsemide (Torsemide 20 Mg Tablet) 40 mg PO DAILY [facility]; Protocol Last Admin: 01/15/23 09:04 Dose: 40 mg Documented By: JOÃO Trazodone HCl (Trazodone Hcl 50 Mg Tablet) 50 mg PO BEDTIME [facility] Last Admin: 01/14/23 21:47 Dose: 50 mg Documented By: JOÃO Labs 01/15/23 06:24 01/16/23 06:04 Labs: Laboratory Results - last 24 hr 01/14/23 01/14/23 01/15/23 16:37 20:49 05:55 MCV MCH MCHC RDW Plt Count MPV Immature Gran % (Auto) Neut % (Auto) Lymph % (Auto) Mccreary % (Auto) Eos % (Auto) Baso % (Auto) Lymph # (Auto) Mccreary # (Auto) Eos # (Auto) Baso # (Auto) Abs Immat Gran (auto) Absolute Neuts (auto) Absolute Nucleated RBC Nucleated RBC % (auto) Anion Gap Estim Creat Clear Calc Estimated GFR POC Glucose 105 83 16 L* Random Glucose Calcium Total Bilirubin AST ALT Alkaline Phosphatase Total Protein Albumin 01/15/23 01/15/23 01/15/23 06:02 06:18 06:24 MCV 87.4 MCH 28.4 MCHC 32.6 RDW 13.9 Plt Count 176 MPV 10.3 Immature Gran % (Auto) 0.6 H Neut % (Auto) 89.5 H Lymph % (Auto) 5.5 L Mccreary % (Auto) 2.8 Eos % (Auto) 1.2 Baso % (Auto) 0.4 Lymph # (Auto) 0.7 L Mccreary # (Auto) 0.4 Eos # (Auto) 0.2 Baso # (Auto) 0.1 Abs Immat Gran (auto) 0.08 H Absolute Neuts (auto) 11.3 H Absolute Nucleated RBC 0.000 Nucleated RBC % (auto) 0.0 Anion Gap 28 H Estim Creat Clear Calc 8.2 Estimated GFR 4 POC Glucose 109 92 Random Glucose 85 Calcium 9.2 Total Bilirubin 0.3 AST 10 ALT 16 Alkaline Phosphatase 96 Total Protein 6.5 Albumin 3.4 L 01/15/23 01/15/23 01/15/23 06:36 07:18 08:55 MCV MCH MCHC RDW Plt Count MPV Immature Gran % (Auto) Neut % (Auto) Lymph % (Auto) Mccreary % (Auto) Eos % (Auto) Baso % (Auto) Lymph # (Auto) Mccreary # (Auto) Eos # (Auto) Baso # (Auto) Abs Immat Gran (auto) Absolute Neuts (auto) Absolute Nucleated RBC Nucleated RBC % (auto) Anion Gap Estim Creat Clear Calc Estimated GFR POC Glucose 83 75 116 H Random Glucose Calcium Total Bilirubin AST ALT Alkaline Phosphatase Total Protein Albumin 01/15/23 01/15/23 09:51 11:03 MCV MCH MCHC RDW Plt Count MPV Immature Gran % (Auto) Neut % (Auto) Lymph % (Auto) Mccreary % (Auto) Eos % (Auto) Baso % (Auto) Lymph # (Auto) Mccreary # (Auto) Eos # (Auto) Baso # (Auto) Abs Immat Gran (auto) Absolute Neuts (auto) Absolute Nucleated RBC Nucleated RBC % (auto) Anion Gap Estim Creat Clear Calc Estimated GFR POC Glucose 128 H 142 H Random Glucose Calcium Total Bilirubin AST ALT Alkaline Phosphatase Total Protein Albumin Microbiology Microbiology Results: Microbiology 01/14/23 12:41 Blood Culture - Preliminary Blood - Venous No growth after 24 hours. 01/14/23 14:57 Urine Culture - Final Urine clean catch - Urine townsend top No growth. Assessment and Plan (1) ESRD (end stage renal disease): Status: Acute (2) Type 1 diabetes: Status: Acute (3) Hypothermia: Status: Acute (4) Hypoglycemia: Status: Acute Plan 33-year-old male with end-stage renal disease secondary to type 1 diabetes presents with hypoglycemic episode. states they were transition to peritoneal dialysis as a trial; sugars have increased as expected with peritoneal dialysis therefore long-acting insulin was increased. states patient got recommended dose of insulin this morning it was fine; VNA came patient was found unresponsive. When EMS arrived he was found to be hypoglycemic and given dextrose with good results. He was hypoxic and placed on a non-rebreather and transmitted to emergency room. In the emergency room he was found to be hypothermic and placed on a Alma Hugger with good results. CT of the chest demonstrated a right-sided mass consistent with aspiration 1. Hypothermia likely due to hypoglycemia/question aspiration pneumonia CT chest showed masslike consolidation right lower lobe3.3 x 2.9 x 2.9 cm. Left lower lobe airspace disease with new peribronchial nodules. Aspiration pneumonia cannot be excluded. CT abdomen and pelvis showed small and large bowel wall thickening and small to moderate ascites likely due to peritoneal dialysis, no abdominal pain,no nausea ,no vomiting. -s/p Alma Hugger , temperature improved to 98.5 -given vancomycin and cefepime in the ER. continue vancomycin and cefepime 500 mg after HD, follow urine and blood cultures -supplemental O2 to maintain sats greater than or equal to 90%, not on home oxygen. 2. Type 1 diabetes with hypoglycemia/with unresponsive episode blood sugars 16 this a.m. Noted to have episodes of hypoglycemia at home,repeat bs were improved in ED Will place on IV D5W, hold long-acting insulin , continue insulin sliding scale and ADA diet 3. ESRD on HD -was receiving peritoneal dialysis at home, hemodialysis in hospital as per Nephrology , continue home medication Sensipar ,Tuesday and Tuesday. Follow Nephro recommendation 4. Hypertension -poorly controlled continue home medications Coreg, nifedipine 30 b.i.d., Entresto 97/103 b.i.d. and torsemide, follow BP closely 5. Peripheral vascular disease/status post amputation with phantom pain -continue Plavix/statins / Dilaudid as needed, and antiemetics for nausea 6. Mood disorder continue Ativan, Zoloft,and trazodone Full code Heparin (renally dosed) Requires continued inpatient hospitalization to treat aspiration pneumonia with IV antibiotics and hemodialysis , needs close blood sugar monitoring for hypoglycemia . Time Spent With Patient Time: Total time managing care of this patient today ____ minutes. Quality Stroke Does the patient have a stroke diagnosis?: No VTE Prior VTE?: No VTE Risk Level:: Medical - moderate - high VTE Device Contraindication: Treatment Not Indicated VTE Drug Contraindication: N/A - Med Ordered
[2023-01-15 15:07] LABS: Glucose, Whole Blood 130 mg/dL (60-115)
--- NOTE | 2023-01-15 15:17 | MHC.CM.PN ---
Pt lives at home with his /HCP [place], is [facility], and uses a wheelchair. Pt is getting peritoneal dialysis at home each night that his helps administer. Returning home is the goal, pts to transport him. PCP: Dr. Jarrett Faustin
[2023-01-15 15:26] LABS: Vancomycin Random 16.5 mcg/mL (15-20)
[2023-01-15] MEDS: HYDROmorphone HCl 2 MG TABLET PO (17:26)
[2023-01-15 20:11] LABS: Glucose, Whole Blood 253 mg/dL (60-115)
[2023-01-15] MEDS: Doxazosin Mesylate 2 MG TABLET 4 MG PO (21:11)
[2023-01-15] MEDS: traZODone HCL 50 MG TABLET PO (21:12)
[2023-01-15] MEDS: Insulin Lispro 100 UNIT/ML 3 ML VIAL SUBCUT (21:19)
[2023-01-15] MEDS: LORazepam 0.5 MG TABLET PO (21:19)
[2023-01-15] MEDS: ondansetron HCL 4 MG/2 ML VIAL IVPUSH (21:19)
[2023-01-16] MEDS: 0.9 % Sodium Chloride Flush 3 ML SYRINGE IVFLUSH ×4 (02:55→19:41)
[2023-01-16] MEDS: Dextrose 5 % and Lactated Ring 1,000 ML 100 ML IVCONT (03:31)
[2023-01-16 03:52] VITALS: BP 127/72; PULSE 109; RESP 16; TEMP 37.7; O2SAT 94
[2023-01-16 05:30] LABS: Glucose, Whole Blood 353 mg/dL (60-115)
[2023-01-16] MEDS: ondansetron HCL 4 MG/2 ML VIAL IVPUSH (05:31)
[2023-01-16] MEDS: Heparin Sodium,Porcine 5,000 UNIT/ML VIAL 5000 UNIT SUBCUT ×2 (05:31→17:18)
[2023-01-16 06:51] LABS: Creatinine Clr Calc Pharmacy 12.9; Estimated Glomerular Filt Rate 7
[2023-01-16 07:07] VITALS: BP 134/68; PULSE 113; RESP 16; TEMP 37.7; O2SAT 96
[2023-01-16 07:11] LABS: Glucose, Whole Blood 379 mg/dL (60-115)
[2023-01-16] MEDS: Clopidogrel Bisulfate 75 MG TABLET PO (08:18)
[2023-01-16] MEDS: carvediloL 25 MG TABLET PO ×2 (08:18→21:23)
[2023-01-16] MEDS: Omeprazole 20 MG CAPSULE.DR PO (08:18)
[2023-01-16] MEDS: Sertraline HCL 100 MG TABLET PO (08:18)
[2023-01-16] MEDS: Atorvastatin Calcium 40 MG TABLET PO (08:18)
[2023-01-16] MEDS: NIFEdipine ER 30 MG TAB.ER.24 PO ×2 (08:18→21:22)
[2023-01-16] MEDS: Gabapentin 300 MG CAPSULE PO ×2 (08:19→21:22)
[2023-01-16] MEDS: Insulin Lispro 100 UNIT/ML 3 ML VIAL SUBCUT ×4 (08:19→21:23)
[2023-01-16] MEDS: Torsemide 20 MG TABLET 40 MG PO (08:19)
--- NOTE | 2023-01-16 08:28 | P.CONNP_ITS ---
History of Present Illness Reason for Consult Consult date: 01/16/23 Chief Complaint Chief complaint: hypoglycemia History of Present Illness Narrative: 33 year old patient with history of ESRD presented withn hypoglycemic events. Patient is transitioning to PD and has had elevated blood sugar. VNA found him unresponsive and he wa sent to the hospital. CT scan of the chest was suggestive of aspiration pneumonia. 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 HTN (hypertension) Acute renal failure CKD (chronic kidney disease), stage IV Social History Social History Household Members: Spouse Housing: House Do you presently have visiting nurse or other home services: Yes Patient Tobacco Use Status: Never used Tobacco e-Cigarette/Vaping Use: Never Used Substance Use Type: Marijuana Advance Directives Date on File: 01/14/23 service: No Meds Allergies Allergy/AdvReac Type Severity Reaction Status Date / Time tramadol Allergy Itching Verified 09/24/21 08:17 Active Medications: Current Medications Atorvastatin Calcium (Atorvastatin Calcium 40 Mg Tablet) 40 mg PO DAILY [facility] Last Admin: 01/16/23 08:18 Dose: 40 mg Carvedilol (Carvedilol 25 Mg Tablet) 25 mg PO BID [facility]; Protocol Last Admin: 01/16/23 08:18 Dose: 25 mg Cinacalcet (Cinacalcet Hcl 30 Mg Tablet) 30 mg PO MOWEFR [facility] Clopidogrel Bisulfate (Clopidogrel Bisulfate 75 Mg Tablet) 75 mg PO DAILY [facility] Last Admin: 01/16/23 08:18 Dose: 75 mg Dextrose (Dextrose 50 % 25 Gm/50 Ml Syringe) 25 gm IVPUSH Q15M PRN; Protocol PRN Reason: per Hypoglycemia Standing Ord. Last Admin: 01/15/23 05:58 Dose: 25 gm Doxazosin Mesylate (Doxazosin Mesylate 2 Mg Tablet) 4 mg PO BEDTIME [facility]; Protocol Last Admin: 01/15/23 21:11 Dose: 4 mg Gabapentin (Gabapentin 300 Mg Capsule) 300 mg PO BID [facility] Last Admin: 01/16/23 08:19 Dose: 300 mg Glucose (Glucose Gel 15 Gm Gel..Gram.) 15 gm PO Q15M PRN; Protocol PRN Reason: per Hypoglycemia Standing Ord. Heparin Sodium (Porcine) (Heparin Sodium,Porcine 5,000 Unit/Ml Vial) 5,000 unit SUBCUT Q12H [facility] Last Admin: 01/16/23 05:31 Dose: 5,000 unit Hydromorphone HCl (Hydromorphone Hcl 2 Mg Tablet) 2 mg PO BEDTIME PRN PRN Reason: Pain, Severe (Pain Scale 7-10) Last Admin: 01/15/23 17:26 Dose: 2 mg Vancomycin HCl 500 mg/ Sodium (Chloride) 110 mls @ 110 mls/hr IV MOWEFR ONE Stop: 01/14/23 18:13 Dextrose/Lactated Ringer's (D5lr) 1,000 mls @ 100 mls/hr IVCONT .Q10H [facility] Last Admin: 01/16/23 03:31 Dose: 100 mls/hr Insulin Human Lispro (Insulin Lispro 100 Unit/Ml 3 Ml Vial) 0 unit SUBCUT QIDACHS [facility]; Protocol Last Admin: 01/16/23 08:19 Dose: 10 unit Lorazepam (Lorazepam 0.5 Mg Tablet) 0.5 mg PO Q6H PRN PRN Reason: anxiety Last Admin: 01/15/23 21:19 Dose: 0.5 mg Nifedipine (Nifedipine Er 30 Mg Tab.Er.24) 30 mg PO BID [facility]; Protocol Last Admin: 01/16/23 08:18 Dose: 30 mg Pt Own (Ferric Citrate [Auryxia] 210 Mg Iron Tablet) 3 tab PO TID [facility] Last Admin: 01/16/23 08:17 Dose: 3 tab Omeprazole (Omeprazole 20 Mg Capsule.Dr) 20 mg PO DAILY@0630 [facility] Last Admin: 01/16/23 08:18 Dose: 20 mg Ondansetron HCl (Ondansetron Hcl 4 Mg/2 Ml Vial) 4 mg IVPUSH Q8H PRN PRN Reason: Nausea and Vomiting Last Admin: 01/16/23 05:31 Dose: 4 mg Pharmacy Consult (Consult Rx Vancomycin Dosing) 1 each MISCELLANE DAILY PRN PRN Reason: Consult order Sacubitril/Valsartan (Sacubitril/Valsartan 97/103 1 Tab Tablet) 1 tab PO BID [facility]; Protocol Last Admin: 01/15/23 21:11 Dose: 1 tab Sertraline HCl (Sertraline Hcl 100 Mg Tablet) 100 mg PO DAILY [facility] Last Admin: 01/16/23 08:18 Dose: 100 mg Sodium Chloride (0.9 % Sodium Chloride Flush 3 Ml Syringe) 3 ml IVFLUSH QSHIFT [facility] Last Admin: 01/16/23 02:55 Dose: 3 ml Torsemide (Torsemide 20 Mg Tablet) 40 mg PO DAILY [facility]; Protocol Last Admin: 01/16/23 08:19 Dose: 40 mg Trazodone HCl (Trazodone Hcl 50 Mg Tablet) 50 mg PO BEDTIME [facility] Last Admin: 01/15/23 21:12 Dose: 50 mg Home Medications Medication Instructions Recorded Confirmed Last Taken Type blood sugar diagnostic (FreeStyle 09/23/21 09/23/21 Unknown History Lite Strips) blood-glucose meter (FreeStyle 09/23/21 09/23/21 Unknown History Lite Meter kit) blood-glucose sensor (Dexcom G6 09/23/21 09/23/21 Unknown History Sensor device) blood-glucose transmitter (Dexcom 09/23/21 09/23/21 Unknown History G6 Transmitter device) lancets 28 gauge (FreeStyle 09/23/21 09/23/21 Unknown History Lancets) pen needle, diabetic 31 gauge x 09/23/21 09/23/21 Unknown History 06/10 (BD Ultra-Fine Mini Pen Needle) atorvastatin 40 mg tablet 40 mg PO DAILY 01/14/23 01/14/23 01/13/23 History carvedilol 25 mg tablet 25 mg PO BID 01/14/23 01/14/23 01/13/23 History cinacalcet 30 mg tablet 30 mg PO MOWEFR 01/14/23 01/14/23 12/31/22 History clopidogrel 75 mg tablet 75 mg PO DAILY 01/14/23 01/14/23 01/13/23 History collagenase clostridium histo. 250 1 appl topical DAILY 01/14/23 01/14/23 01/13/23 History unit/gram topical ointment (Santyl) doxazosin 2 mg tablet 4 mg PO BEDTIME 01/14/23 01/14/23 01/13/23 History ergocalciferol (vitamin D2) 1,250 1,250 mcg PO MO 01/14/23 01/14/23 01/10/23 History mcg (50,000 unit) capsule ferric citrate 210 mg iron tablet 3 tab PO TID 01/14/23 01/14/23 01/13/23 History (Auryxia) gabapentin 300 mg capsule 300 mg PO BID 01/14/23 01/14/23 01/13/23 History hydromorphone 2 mg tablet 2 mg PO BEDTIME PRN pain 01/14/23 01/14/23 01/13/23 History insulin glargine-yfgn 100 unit/mL 42 unit subcut DAILY 01/14/23 01/14/23 01/14/23 History (3 mL) subcutaneous pen (Semglee (insulin glargine-yfgn) Pen) insulin lispro 100 unit/mL See Protocol subcut QIDACHS 01/14/23 01/14/23 01/13/23 History subcutaneous pen lanthanum 500 mg chewable tablet 500 mg PO TID 01/14/23 01/14/23 01/13/23 History lorazepam 0.5 mg tablet 0.5 mg PO Q6H PRN anxiety 01/14/23 01/14/23 01/13/23 History nifedipine 30 mg tablet,extended 30 mg PO BID 01/14/23 01/14/23 01/13/23 History release 24 hr omeprazole 20 mg capsule,delayed 20 mg PO DAILY 01/14/23 01/14/23 01/13/23 History release sacubitril 97 mg-valsartan 103 mg 1 tab PO BID 01/14/23 01/14/23 01/13/23 History tablet (Entresto) sertraline 100 mg tablet 100 mg PO DAILY 01/14/23 01/14/23 01/13/23 History torsemide 20 mg tablet 40 mg PO DAILY 01/14/23 01/14/23 01/13/23 History trazodone 50 mg tablet 50 mg PO BEDTIME 01/14/23 01/14/23 01/13/23 History vitamin B complex-vitamin C-folic 1 tab PO DAILY 01/14/23 01/14/23 01/13/23 History acid 0.8 mg tablet (Elsa-Deonna) Physical Exam Vital Signs: Last Vital Signs Temp 99.9 F 01/16/23 07:07 Pulse 113 H 01/16/23 07:07 Resp 16 01/16/23 07:07 BP 134/68 01/16/23 07:07 Pulse Ox 96 01/16/23 07:07 O2 Del Method Room Air 01/16/23 07:07 O2 Flow Rate 1 01/14/23 17:43 FiO2 98 01/15/23 00:00 Oxygen Flow Rate 2 01/14/23 12:36 BMI result Body Mass Index 23.3 Const General: alert and awake HEENT Head: Yes normocephalic and Yes atraumatic Neck Neck: Yes supple Resp Auscultation: clear to auscultation bilaterally Cardio Heart sounds: S1 normal heart sound present and S2 normal heart sound present GI Palpation (GI): Soft to palpation and nontender Extrem General: No no pedal edema Results Lab Results 01/15/23 06:24 01/16/23 06:04 Lab results: Chemistry 01/14/23 01/15/23 01/16/23 13:00 06:24 06:04 Sodium 142 142 Potassium 5.0 5.1 Carbon Dioxide 17 L 19 L BUN 56 H 65 H Creatinine 13.03 H* 14.04 H* 8.91 H* Calcium 9.4 9.2 Hematology 01/14/23 01/15/23 12:41 06:24 WBC 10.5 12.7 H Hgb 10.7 L 9.7 L Plt Count 178 176 Urinalysis 01/14/23 13:40 Urine Color Yellow Urine Appearance Clear Urine pH 7.0 Ur Specific Bronson 1.020 Urine Protein >=1000 (4+) H Urine Glucose (UA) >=1000 H Urine Ketones Negative Urine Blood Small (1+) H Urine Nitrite Negative Ur Leukocyte Esterase Negative Urine RBC 11-20 H Urine WBC 11-20 H Ur Squamous Epith Cells 0-2 Hyaline Casts 0-2 Assessment and Plan (1) ESRD (end stage renal disease): Status: Acute (2) Pneumonia: Qualifiers: Pneumonia type: aspiration pneumonia Aspiration pneumonia type: u nspecified Laterality: right Status: Acute (3) Anemia: Status: Acute Plan known ESKD due to diabetic nephropathy h/o type 1 DM patient transitioning to PD he is adamant he wants PD he does NOT want HD he has perm cath presented with hypoglycemia and aspiration PNA nephrogenic anemia REC HD while at [facility] renal diet p[hsophate binders cinacalcet blood culture ABx Time Spent With Patient Time: Total time managing care of this patient today ____ minutes. Procedures Date of Service Date of Service: 01/16/23
[2023-01-16 10:12] LABS: Anion Gap 29 (12-20); Blood Urea Nitrogen 39 mg/dL (9-16); Calcium 8.8 mg/dL (8.4-10.2); Carbon Dioxide 18 mmol/L (22-29); Chloride 95 mmol/L (96-108); Glucose Random 393 mg/dL (60-115); Potassium 5.8 mmol/L (3.3-5.1); Sodium 136 mmol/L (135-145)
[2023-01-16] MEDS: Sacubitril/Valsartan 97/103 1 TAB TABLET PO ×2 (11:08→21:23)
[2023-01-16 11:12] LABS: Glucose, Whole Blood 322 mg/dL (60-115)
[2023-01-16 11:16] VITALS: PULSE 101; RESP 16; TEMP 37.6; O2SAT 96
[2023-01-16 15:08] VITALS: BP 173/88; PULSE 97; RESP 20; TEMP 36.9; O2SAT 98
--- NOTE | 2023-01-16 15:34 | P.PNIM_ITS ---
Subjective Subjective Date of Service: 01/17/23 Interval History: Being followed for hypoglycemia and episode of unresponsiveness, this morning patient awake alert blood sugars and 300 since on IV D5W tolerating diabetic diet complaining of nausea no vomiting no abdominal pain, no diarrhea as per patient have high blood sugars at night in 400 range , administer insulin as per sliding scale and have low blood sugars in the morning, denies recent adjustment in insulin dosage. Denies shortness of breath, no cough, no fevers, no chills. Review of Systems All other system reviewed and negative Physical Exam 2 Vital Signs: Vital Signs: Last Vital Signs Temp 98.5 F 01/16/23 15:08 Pulse 97 01/16/23 15:08 Resp 20 01/16/23 15:08 BP 173/88 H 01/16/23 15:08 Pulse Ox 98 01/16/23 15:08 O2 Del Method Room Air 01/16/23 15:08 O2 Flow Rate 1 01/14/23 17:43 FiO2 98 01/15/23 00:00 Oxygen Flow Rate 2 01/14/23 12:36 BMI result Body Mass Index 23.3 Const: Other: General awake aler t x3, resting comf ortably in no acut e distress. Neck no JVD. CVS regu lar rate rhythm, h emodialysis cathet er right chest wal l Respiratory lung s clear to auscult ation, no respirat ory distress, no w heeze, no rhonchi. Gastrointestinal abdomen soft, non tender, bowel soun ds audible, no gua rding , no rigidit y. PD catheter le ft lower quadrant. Extremities right BKA, left TMA Alec ro nonfocal patien t moving all 4 ext remity speech aimee r. Skin no rash Objective Data Active Medications Atorvastatin Calcium (Atorvastatin Calcium 40 Mg Tablet) 40 mg PO DAILY [facility] Last Admin: 01/16/23 08:18 Dose: 40 mg Documented By: ANTONELLA Carvedilol (Carvedilol 25 Mg Tablet) 25 mg PO BID [facility]; Protocol Last Admin: 01/16/23 08:18 Dose: 25 mg Documented By: ANTONELLA Cinacalcet (Cinacalcet Hcl 30 Mg Tablet) 30 mg PO MOWEFR [facility] Clopidogrel Bisulfate (Clopidogrel Bisulfate 75 Mg Tablet) 75 mg PO DAILY [facility] Last Admin: 01/16/23 08:18 Dose: 75 mg Documented By: ANTONELLA Dextrose (Dextrose 50 % 25 Gm/50 Ml Syringe) 25 gm IVPUSH Q15M PRN; Protocol PRN Reason: per Hypoglycemia Standing Ord. Last Admin: 01/15/23 05:58 Dose: 25 gm Documented By: JOÃO Doxazosin Mesylate (Doxazosin Mesylate 2 Mg Tablet) 4 mg PO BEDTIME [facility]; Protocol Last Admin: 01/15/23 21:11 Dose: 4 mg Documented By: JOÃO Gabapentin (Gabapentin 300 Mg Capsule) 300 mg PO BID [facility] Last Admin: 01/16/23 08:19 Dose: 300 mg Documented By: ANTONELLA Glucose (Glucose Gel 15 Gm Gel..Gram.) 15 gm PO Q15M PRN; Protocol PRN Reason: per Hypoglycemia Standing Ord. Heparin Sodium (Porcine) (Heparin Sodium,Porcine 5,000 Unit/Ml Vial) 5,000 unit SUBCUT Q12H [facility] Last Admin: 01/16/23 05:31 Dose: 5,000 unit Documented By: JOÃO Hydromorphone HCl (Hydromorphone Hcl 2 Mg Tablet) 2 mg PO BEDTIME PRN PRN Reason: Pain, Severe (Pain Scale 7-10) Last Admin: 01/15/23 17:26 Dose: 2 mg Documented By: ANTONELLA Vancomycin HCl 500 mg/ Sodium (Chloride) 110 mls @ 110 mls/hr IV MOWEFR ONE Stop: 01/14/23 18:13 Promethazine HCl 6.25 mg/ (Sodium Chloride) 50.25 mls @ 201 mls/hr IV Q6H PRN PRN Reason: Nausea and Vomiting Last Infusion: 01/16/23 14:07 Dose: Infused Documented By: ADAM Insulin Human Lispro (Insulin Lispro 100 Unit/Ml 3 Ml Vial) 0 unit SUBCUT QIDACHS [facility]; Protocol Last Admin: 01/16/23 13:00 Dose: 8 unit Documented By: ANTONELLA Lorazepam (Lorazepam 0.5 Mg Tablet) 0.5 mg PO Q6H PRN PRN Reason: anxiety Last Admin: 01/15/23 21:19 Dose: 0.5 mg Documented By: JOÃO Nifedipine (Nifedipine Er 30 Mg Tab.Er.24) 30 mg PO BID [facility]; Protocol Last Admin: 01/16/23 08:18 Dose: 30 mg Documented By: ANTONELLA Pt Own (Ferric Citrate [Auryxia] 210 Mg Iron Tablet) 3 tab PO TID [facility] Last Admin: 01/16/23 08:17 Dose: 3 tab Documented By: ANTONELLA Pt Own Lanthanum 500 (Mg) 0 each PO TID [facility] Omeprazole (Omeprazole 20 Mg Capsule.Dr) 20 mg PO DAILY@0630 [facility] Last Admin: 01/16/23 08:18 Dose: 20 mg Documented By: ANTONELLA Pharmacy Consult (Consult Rx Vancomycin Dosing) 1 each MISCELLANE DAILY PRN PRN Reason: Consult order Sacubitril/Valsartan (Sacubitril/Valsartan 97/103 1 Tab Tablet) 1 tab PO BID [facility]; Protocol Last Admin: 01/16/23 11:08 Dose: 1 tab Documented By: ANTONELLA Sertraline HCl (Sertraline Hcl 100 Mg Tablet) 100 mg PO DAILY [facility] Last Admin: 01/16/23 08:18 Dose: 100 mg Documented By: ANTONELLA Sodium Chloride (0.9 % Sodium Chloride Flush 3 Ml Syringe) 3 ml IVFLUSH QSHIFT [facility] Last Admin: 01/16/23 11:09 Dose: 3 ml Documented By: ANTONELLA Torsemide (Torsemide 20 Mg Tablet) 40 mg PO DAILY [facility]; Protocol Last Admin: 01/16/23 08:19 Dose: 40 mg Documented By: ANTONELLA Trazodone HCl (Trazodone Hcl 50 Mg Tablet) 50 mg PO BEDTIME [facility] Last Admin: 01/15/23 21:12 Dose: 50 mg Documented By: JOÃO Labs 01/17/23 06:37 01/17/23 06:37 Labs: Laboratory Results - last 24 hr 01/15/23 01/16/23 01/16/23 20:09 05:26 06:04 Hold Purple Top SEE NOTE Anion Gap 29 H Estim Creat Clear Calc 12.9 Estimated GFR 7 POC Glucose 253 H 353 H* Random Glucose 393 H* Calcium 8.8 01/16/23 01/16/23 07:05 11:07 Hold Purple Top Anion Gap Estim Creat Clear Calc Estimated GFR POC Glucose 379 H* 322 H Random Glucose Calcium Microbiology Microbiology Results: Microbiology 01/14/23 12:41 Blood Culture - Preliminary Blood - Venous No growth after 48 hours. 01/14/23 13:00 Blood Culture - Preliminary Blood - Venous No growth after 24 hours. Assessment and Plan (1) ESRD (end stage renal disease): Status: Acute (2) Type 1 diabetes: Status: Acute (3) Hypothermia: Status: Acute (4) Hypoglycemia: Status: Acute Plan 33-year-old male with end-stage renal disease secondary to type 1 diabetes presents with hypoglycemic episode. states they were transition to peritoneal dialysis as a trial; sugars have increased as expected with peritoneal dialysis therefore long-acting insulin was increased. states patient got recommended dose of insulin this morning it was fine; VNA came patient was found unresponsive. When EMS arrived he was found to be hypoglycemic and given dextrose with good results. He was hypoxic and placed on a non-rebreather and transmitted to emergency room. In the emergency room he was found to be hypothermic and placed on a Alma Hugger with good results. CT of the chest demonstrated a right-sided mass consistent with aspiration 1. Hypothermia likely due to hypoglycemia/question aspiration pneumonia Hypothermia resolved. CT chest showed masslike consolidation right lower lobe3.3 x 2.9 x 2.9 cm. Left lower lobe airspace disease with new peribronchial nodules. Aspiration pneumonia cannot be excluded. CT abdomen and pelvis showed small and large bowel wall thickening and small to moderate ascites likely due to peritoneal dialysis, no abdominal pain, mild nausea tolerating diet given vancomycin and cefepime in the ER. now on vancomycin and cefepime 500 mg after HD, blood cultures x2 negative times 48 hours, urine culture showed no growth. oxygenating 98% on room air. Will transition to by mouth Augmentin. 2. Type 1 diabetes with hypoglycemia/with unresponsive episode Blood sugars in 300s will DC IV fluids As per patient blood sugars high at night due to peritoneal dialysis fluid takes Lantus 42 units monitor blood sugars times 24 hours and will adjust home insulin sliding scale, 3. ESRD on HD -was receiving peritoneal dialysis at home, hemodialysis in hospital as per Nephrology , continue home medication Sensipar ,Tuesday and Tuesday. Patient wishes to continue peritoneal dialysis at home. 4. Hypertension - continue home medications Coreg, nifedipine 30 b.i.d., Entresto 97/103 b.i.d. and torsemide, follow BP closely. 5. Peripheral vascular disease/status post amputation with phantom pain -continue Plavix/statins / continue Dilaudid as needed, and antiemetics for nausea. 6. Mood disorder continue Ativan, Zoloft,and trazodone. Full code Heparin (renally dosed) Requires continued inpatient hospitalization to treat aspiration pneumonia with IV antibiotics and hemodialysis , needs close blood sugar monitoring for hypoglycemia . Time Spent With Patient Time: Total time managing care of this patient today ____ minutes. Quality Stroke Does the patient have a stroke diagnosis?: No VTE Prior VTE?: No VTE Risk Level:: Medical - moderate - high VTE Device Contraindication: Treatment Not Indicated VTE Drug Contraindication: N/A - Med Ordered
[2023-01-16 16:00] LABS: Glucose, Whole Blood 409 mg/dL (60-115)
[2023-01-16 19:49] LABS: Glucose, Whole Blood 386 mg/dL (60-115)
[2023-01-16 20:46] VITALS: BP 171/86; PULSE 104; O2SAT 96
[2023-01-16] MEDS: Doxazosin Mesylate 2 MG TABLET 4 MG PO (21:22)
[2023-01-16] MEDS: traZODone HCL 50 MG TABLET PO (21:23)
[2023-01-16] MEDS: HYDROmorphone HCl 2 MG TABLET PO (22:23)
[2023-01-17] VITALS: BP 170/97; PULSE 93; RESP 20; TEMP 36.9; O2SAT 94
[2023-01-17 04:00] VITALS: BP 110/70; PULSE 94; RESP 20; TEMP 36.1; O2SAT 96
[2023-01-17] MEDS: Omeprazole 20 MG CAPSULE.DR PO (06:56)
[2023-01-17] MEDS: Heparin Sodium,Porcine 5,000 UNIT/ML VIAL 5000 UNIT SUBCUT (06:56)
[2023-01-17 07:10] LABS: Hematocrit 26.3 % (42.0-52.0); Hemoglobin 8.4 g/dl (14.0-18.0); Mean Corpuscular HGB Conc 31.9 g/dl (31.0-36.0); Mean Corpuscular Hemoglobin 28.2 pg (27.0-33.0); Mean Corpuscular Volume 88.3 fL (80.0-98.0); Mean Platelet Volume 11.2 fL (9.4-12.4); Platelet Count 153 X10*3/uL (160-400); Red Blood Count 2.98 X10*6/uL (4.60-5.80); Red Cell Distribution Width 13.2 % (11.0-16.0); White Blood Count 11.1 X10*3/uL (4.8-10.8)
[2023-01-17 07:59] VITALS: BP 134/71; PULSE 101; RESP 18; TEMP 37; O2SAT 95
[2023-01-17 08:01] LABS: Anion Gap 31 (12-20); Blood Urea Nitrogen 57 mg/dL (9-16); Calcium 9.2 mg/dL (8.4-10.2); Carbon Dioxide 18 mmol/L (22-29); Chloride 94 mmol/L (96-108); Creatinine Clr Calc Pharmacy 10.5; Estimated Glomerular Filt Rate 5; Glucose Random 358 mg/dL (60-115); Potassium 5.7 mmol/L (3.3-5.1); Sodium 137 mmol/L (135-145)
[2023-01-17 08:09] LABS: Glucose, Whole Blood 382 mg/dL (60-115)
[2023-01-17] MEDS: Insulin Lispro 100 UNIT/ML 3 ML VIAL SUBCUT (08:26)
[2023-01-17] MEDS: Sacubitril/Valsartan 97/103 1 TAB TABLET PO (08:28)
[2023-01-17] MEDS: Gabapentin 300 MG CAPSULE PO (08:28)
[2023-01-17] MEDS: 0.9 % Sodium Chloride Flush 3 ML SYRINGE IVFLUSH (08:28)
[2023-01-17] MEDS: Sertraline HCL 100 MG TABLET PO (08:28)
[2023-01-17] MEDS: carvediloL 25 MG TABLET PO (08:28)
[2023-01-17] MEDS: NIFEdipine ER 30 MG TAB.ER.24 PO (08:28)
[2023-01-17] MEDS: Clopidogrel Bisulfate 75 MG TABLET PO (08:28)
[2023-01-17] MEDS: Torsemide 20 MG TABLET 40 MG PO (08:28)
[2023-01-17] MEDS: Atorvastatin Calcium 40 MG TABLET PO (08:28)
[2023-01-17 08:54] LABS: Iron 138 mcg/dL (45-160); Percent Iron Saturation 85 % (15-50); Total Iron Binding Capacity 163 mcg/dL (228-428); Unsaturated Iron Binding < 25 ug/dL
[2023-01-17] MEDS: Cinacalcet HCl 30 MG TABLET PO (09:40)
[2023-01-17] MEDS: Insulin Glargine,Hum.rec.anlog 100 UNIT/ML 10 ML VIAL 30 UNIT SUBCUT (09:40)
--- NOTE | 2023-01-17 11:53 | PM.PNNEP ---
Subjective Subjective Date of Service: 01/17/23 Interval history: Being followed for hypoglycemia and episode of unresponsiveness Pt seen on HD Denies shortness of breath, no cough, no fevers, no chills. Physical Exam Vital Signs: Vital Signs: Last Vital Signs Temp 98.6 F 01/17/23 07:59 Pulse 101 H 01/17/23 07:59 Resp 18 01/17/23 07:59 BP 134/71 01/17/23 07:59 Pulse Ox 95 01/17/23 07:59 O2 Del Method Room Air 01/17/23 07:59 O2 Flow Rate 1 01/14/23 17:43 FiO2 98 01/15/23 00:00 Oxygen Flow Rate 2 01/14/23 12:36 BMI result Body Mass Index 23.3 Const: General: alert and awake HEENT: Head: Yes normocephalic and Yes atraumatic Neck: Neck: Yes supple Resp: Auscultation: clear to auscultation bilaterally Cardio: Heart sounds: S1 normal heart sound present and S2 normal heart sound present GI: Palpation (GI): Soft to palpation and nontender Extrem: General: No no pedal edema Objective Data Labs 01/17/23 06:37 01/17/23 06:37 Labs: Laboratory Results - last 24 hr 01/16/23 01/16/23 01/17/23 15:56 19:44 06:37 WBC 11.1 H RBC 2.98 L Hgb 8.4 L Hct 26.3 L MCV 88.3 MCH 28.2 MCHC 31.9 RDW 13.2 Plt Count 153 L MPV 11.2 Absolute Nucleated RBC 0.000 Nucleated RBC % (auto) 0.0 Sodium 137 Potassium 5.7 H Chloride 94 L Carbon Dioxide 18 L Anion Gap 31 H BUN 57 H Creatinine 10.96 H* Estim Creat Clear Calc 10.5 Estimated GFR 5 POC Glucose 409 H* 386 H* Random Glucose 358 H* Calcium 9.2 Iron 138 TIBC 163 L % Saturation 85 H Unsat Iron Binding < 25 Ferritin > 1676 H 01/17/23 08:01 WBC RBC Hgb Hct MCV MCH MCHC RDW Plt Count MPV Absolute Nucleated RBC Nucleated RBC % (auto) Sodium Potassium Chloride Carbon Dioxide Anion Gap BUN Creatinine Estim Creat Clear Calc Estimated GFR POC Glucose 382 H* Random Glucose Calcium Iron TIBC % Saturation Unsat Iron Binding Ferritin Microbiology Microbiology Results: Microbiology 01/14/23 13:00 Blood - Venous Blood Culture - Preliminary No growth after 48 hours. 01/14/23 12:41 Blood - Venous Blood Culture - Preliminary No growth after 48 hours. 01/14/23 14:57 Urine clean catch - Urine townsend top Urine Culture - Final No growth. Procedures Date of Service Date of Service: 01/17/23 Assessment & Plan Assessment and plan (1) ESRD (end stage renal disease): Status: Acute Assessment and Plan: ESKD due to diabetic nephropathy h/o type 1 DM patient transitioning to PD He has perm cath presented with hypoglycemia and aspiration PNA nephrogenic anemia REC HD while at [facility] - HD today as K is high retacrit x 20 K today ordered renal diet phsophate binders cinacalcet blood culture- negative ABx as per medical team If D/c'd will arrange for out pt PD PD dressing change done by me (2) Type 1 diabetes: Status: Acute (3) Anemia: Status: Acute (4) Hypoglycemia: Status: Acute Time Spent With Patient Time: Total time managing care of this patient today ____ minutes. Progress Note: Quality Stroke Does the patient have a stroke diagnosis?: No
[2023-01-17 12:01] LABS: Ferritin > 1676 ng/mL (20-250)
--- NOTE | 2023-01-17 13:19 | P.DS_ITS ---
DS: Providers Provider Date of Service: 01/18/23 Date of admission: 01/14/23 16:58 Primary care physician: Jarrett Faustin MD Consults: 01/14/23 13:57 Consult to Nephrology Stat Consulting Provider: Obie Zee Reason for consultation: ESRD on HD, ?line infection Has provider been notified: Yes DS: Diagnosis Discharge Diagnosis (1) ESRD (end stage renal disease): Status: Acute (2) Type 1 diabetes: Status: Acute (3) Anemia: Status: Acute (4) Hypoglycemia: Status: Acute DS: Summary Hospital Course Hospital Course: Date of Service: 01/14/23 Chief Complaint: Hypoglycemia 33 yo male with history of DM1, ESRD previously on PD now appears to be on HD with dialysis catheter in right chest, s/p right BKA who presents to the ER from home via EMS after he was found unresponsive and hypoxic by his visiting nurse. Per EMS VNA spoke with the patient at 9:30 am and he was alert and normal. When she arrived around 11:30 she found him unresponsive on the couch. EMS was called and he was found hypoxic in the 70s, shallow breathing. His glucose was low. IV was established and he was given D10 and glucagon. He was placed on NRB O2 and brought to the ER for further evaluation. Upon discussing with , patient's sugars have been elevated with peritoneal dialysis which have been expected. Insulin was adjusted (long-acting.) This a.m. she gave instructed dose insulin and later that morning was found unresponsive and hypotensive by EMS. He received dextrose in the rader placed on a non-rebreather and presented to the emergency room. Upon presentation sugars were normal however rectal temp was 91 degrees. He was placed on the Alma Hugger. The time of admission temperature is approximately [address] done in the ER showed masslike consolidation in the medial right lower lobe suspicious for aspiration pneumonia. He was given a dose of vancomycin and cefepime. Hospital course: 33-year-old male with end-stage renal disease secondary to type 1 diabetes presents with hypoglycemic episode. states they were transition to p eritoneal dialysis as a trial; sugars have increased as expected with peritoneal dialysis therefore long-acting insulin was increased. states patient got recommended dose of insulin this morning it was fine; VNA came patient was found unresponsive. When EMS arrived he was found to be hypoglycemic and given dextrose with good results. He was hypoxic and placed on a non-rebreather and transmitted to emergency room. In the emergency room he was found to be hypothermic and placed on a Alma Hugger with good results. CT of the chest demonstrated a right-sided mass consistent with aspiration 1. Patient admitted to medical floor with a diagnosis of Hypothermia likely due to hypoglycemia/and aspiration pneumonia, patient treated with Alma Hugger, and placed on IV antibiotics,hypothermia resolved,CT chest showed masslike consolidation right lower lobe 3.3 x 2.9 x 2.9 cm. and left lower lobe airspace disease with new peribronchial nodules likely due to Aspiration pneumonia CT abdomen and pelvis showed small and large bowel wall thickening and small to moderate ascites , and lymphadenopathy patient had no abdominal pain, no nausea,no vomiting, tolerating diet, therefore no further GI workup obtained in house, recommend outpatient CT abdomen in 1 month, patient responded well to antibiotic treatment, blood cultures came back negative, urine culture showed no growth, patient oxygenation 98% on room air, patient transition to by mouth Augmentin and now being discharged home with recommendation to follow-up CT chest and abdomen in 1 month. 2. Type 1 diabetes with hypoglycemia/with unresponsive episode treated with D5W blood sugars bumped to 300 patient placed back on Lantus 42 units as per patient request and continued on insulin sliding scale recommend outpatient follow-up with endocrinology for adjustment of insulin. 3. ESRD on HD patient treated with hemodialysis while in hospital, recommend to resume peritoneal dialysis starting from January 18,continue home medication Sensipar. 4. Hypertension - continue home medications Coreg, nifedipine 30 b.i.d., Entresto 97/103 b.i.d. and torsemide, follow BP closely. 5. Peripheral vascular disease/status post amputation with phantom pain continue Plavix/statins / continue Dilaudid as needed, and anti emetics for nausea. 6. Mood disorder continue Ativan, Zoloft,and trazodone. Time Spent with Patient Time attestation: Total time managing care of this patient today ____ minutes. Discharge coordination time: Greater than 30 minutes Quality: Safe Use of Opioids Does Pt have an Active Cancer Diagnosis on the Problem List?: No Quality: Stroke Does the patient have a stroke diagnosis?: No Physical Exam Vital Signs: Vital Signs: Last Vital Signs Temp 98.6 F 10/23/23 07:59 Pulse 101 H 01/17/23 07:59 Resp 18 01/17/23 07:59 BP 134/71 01/17/23 07:59 Pulse Ox 95 01/17/23 07:59 O2 Del Method Room Air 01/17/23 07:59 O2 Flow Rate 1 01/14/23 17:43 FiO2 98 01/15/23 00:00 Oxygen Flow Rate 2 01/14/23 12:36 BMI result Body Mass Index 23.3 Const: Other: General awake alert x3, resting comfortably in no acute distress. Neck no JVD. CVS regular rate rhythm, hemodialysis catheter right chest wall Respiratory lungs clear to auscultation, no respiratory distress, no wheeze, no rhonchi. Gastrointestinal abdomen soft, non tender, bowel sounds audible, no guarding , no rigidity. PD catheter left lower quadrant. Extremities right BKA, left TMA Neuro nonfocal, moving all 4 extremity speech clear. Skin no rash DS: Data Data Completed and Pending Labs on day of discharge: Laboratory Results - last 24 hr 01/16/23 01/16/23 01/17/23 15:56 19:44 06:37 WBC 11.1 H RBC 2.98 L Hgb 8.4 L Hct 26.3 L MCV 88.3 MCH 28.2 MCHC 31.9 RDW 13.2 Plt Count 153 L MPV 11.2 Absolute Nucleated RBC 0.000 Nucleated RBC % (auto) 0.0 Sodium 137 Potassium 5.7 H Chloride 94 L Carbon Dioxide 18 L Anion Gap 31 H BUN 57 H Creatinine 10.96 H* Estim Creat Clear Calc 10.5 Estimated GFR 5 POC Glucose 409 H* 386 H* Random Glucose 358 H* Calcium 9.2 Iron 138 TIBC 163 L % Saturation 85 H Unsat Iron Binding < 25 Ferritin > 1676 H 01/17/23 08:01 WBC RBC Hgb Hct MCV MCH MCHC RDW Plt Count MPV Absolute Nucleated RBC Nucleated RBC % (auto) Sodium Potassium Chloride Carbon Dioxide Anion Gap BUN Creatinine Estim Creat Clear Calc Estimated GFR POC Glucose 382 H* Random Glucose Calcium Iron TIBC % Saturation Unsat Iron Binding Ferritin Preliminary micro results at discharge 01/14/23 13:00 Blood Culture - Preliminary Blood - Venous No growth after 48 hours. 01/14/23 12:41 Blood Culture - Preliminary Blood - Venous No growth after 48 hours. Discharge Plan Discharge Anticipated Discharge Date/Time: 01/17/23 12:55 Patient Disposition: Home, Self-Care Discharge Diagnosis: Aspiration pneumonia Hypoglycemia Hypothermia End-stage renal disease on dialysis Referrals: [facility] [Outside] - 1 Week Jarrett Faustin MD [Primary Care Provider] - 1 Week Discharge Medications: New amoxicillin-pot clavulanate 250-125 mg tablet 1 tab PO BID Qty: 10 0RF Continued (DME) FreeStyle Lite Strips Strip MISCELLANEOUS QID (DME) blood-glucose meter [FreeStyle Lite Meter] Kit MISCELLANEOUS QID (DME) Dexcom G6 Sensor Device topical QMONTH (DME) Dexcom G6 Transmitter Device MISCELLANEOUS (DME) lancets [FreeStyle Lancets] 28 gauge misc topical QID (DME) pen needle, diabetic [BD Ultra-Fine Mini Pen Needle] 31 gauge x 3/16 n eedle subcut QID nifedipine 30 mg tablet extended release 24hr 30 mg PO BID atorvastatin 40 mg tablet 40 mg PO DAILY carvedilol 25 mg tablet 25 mg PO BID torsemide 20 mg tablet 40 mg PO DAILY trazodone 50 mg tablet 50 mg PO BEDTIME sertraline 100 mg tablet 100 mg PO DAILY clopidogrel 75 mg tablet 75 mg PO DAILY hydromorphone 2 mg tablet 2 mg PO BEDTIME PRN (Reason: pain) lorazepam 0.5 mg tablet 0.5 mg PO Q6H PRN (Reason: anxiety) gabapentin 300 mg capsule 300 mg PO BID omeprazole 20 mg capsule,delayed release(DR/EC) 20 mg PO DAILY Elsa-Deonna 0.8 mg tablet 1 tab PO DAILY ergocalciferol (vitamin D2) 1,250 mcg (50,000 unit) capsule 1,250 mcg PO MO Santyl 250 unit/gram ointment 1 appl topical DAILY Rx Instructions: to leg wound doxazosin 2 mg tablet 4 mg PO BEDTIME insulin lispro 100 unit/mL insulin pen See Protocol subcut QIDACHS Protocol: Insulin Correction Scale Less than or equal to 110 ---- Give (units): 0 111 to 150 Give (units): 0 151 to 200 Give (units): 2 201 to 250 Give (units): 4 251 to 300 Give (units): 6 301 to 350 Give (units): 8 Greater than 350 Give (units): 10 Call MD if Blood Glucose > : 350 cinacalcet 30 mg tablet 30 mg PO MOWEFR lanthanum 500 mg tablet,chewable 500 mg PO TID Auryxia 210 mg iron tablet 3 tab PO TID Entresto 97-103 mg tablet 1 tab PO BID insulin glargine-yfgn [Semglee(insulin glarg-yfgn)Pen] 100 unit/mL (3 mL) insulin pen 42 unit subcut DAILY Discharge Orders: Discharge Order (Routine); Ordered 01/17/23 Ordered By: Davi Williamson Diet: Diabetic diet Activity on Discharge: As tolerated Stand Alone Forms: Patient Portal Discharge page Other Ambulatory Orders: CT abdomen pelvis wo IV con (Routine) Timeframe: 1 Month Facility: [facility] - Location: CT Scan Ordered By: Davi Williamson CT chest wo IV con (Routine) Timeframe: 1 Month Facility: [facility] - Location: CT Scan Ordered By: Davi Williamson Care Plan Goals: Take by mouth Augmentin 1 tablet twice daily for 5 more days Recommend follow-up CT chest in 1 month to follow up on mass like consolidation right medial lobe for clearance Recommend repeat follow-up CT abdomen 1 month for lymphadenopathy. Health Concerns: Monitor blood sugar closely and adjust dose of insulin sliding scale. Plan of Treatment: Follow-up with primary care physician and endocrinology to adjust dose of insulin sliding scale to avoid hypoglycemia call for appointment in next few days. Assessment: as above Discharge Date/Time: 01/17/23 15:58
[2023-01-17 13:38] LABS: Glucose, Whole Blood 165 mg/dL (60-115)
--- NOTE | 2023-01-17 14:21 | MHC.CM.PN ---
EMR reviewed and per MD rounds, pt is medically cleared for D/C home later today with resumption of [facility]. Pts to transport him home.
[2023-01-17 14:38] VITALS: BP 162/94; PULSE 87; RESP 18; TEMP 36.7; O2SAT 100
[2023-01-17 14:38] LABS: Glucose, Whole Blood 102 mg/dL (60-115)
[2023-01-17] MEDS: Amoxicillin/Potassium Clav 500 MG TABLET PO (15:26)
== END 2023-01-17 15:58 | disposition home or self-care (01) | DRG 420 ==
LOC: HO.ED 16:24 → HO.EDOVER 17:15 → HO.IMC 19:43
PROVIDERS: Physician Assistant; Admitting Provider Hospitalist; Emergency Provider Emergency Medicine; PCP Internal Medicine; Visit Provider Hospitalist
DX: E10.649 Type 1 diabetes mellitus with hypoglycemia without coma (principal); J69.0 Pneumonitis due to inhalation of food and vomit; I13.2 Hypertensive heart and chronic kidney disease with heart failure and with stage 5 chronic kidney disease, or end stage renal disease; N18.6 End stage renal disease; G54.6 Phantom limb syndrome with pain; D63.1 Anemia in chronic kidney disease; G89.18 Other acute postprocedural pain; E10.22 Type 1 diabetes mellitus with diabetic chronic kidney disease; E10.52 Type 1 diabetes mellitus with diabetic peripheral angiopathy with gangrene; R68.0 Hypothermia, not associated with low environmental temperature; Z20.822 Contact with and (suspected) exposure to COVID-19; Z89.511 Acquired absence of right leg below knee; Z99.2 Dependence on renal dialysis; Z23 Encounter for immunization; Z79.02 Long term (current) use of antithrombotics/antiplatelets; Z79.899 Other long term (current) drug therapy
CPT/HCPCS: 0241U; 36415; 70450; 71250; 74176; 80048; 80053; 80076; 80143; 80179; 80202; 80307; 81001; 82010; 82140; 82565; 82728; 82803; 82947; 83540; 83605; 83690; 83735; 84443; 84484; 85025; 85027; 87040; 87086; 90686; 90999; 92950; 93005; 99284; J0613; J0692; J0885; J1643; J2405; J2550; J3371

== ENCOUNTER → 2023-01-14 16:58 | Outpatient (BNV) | payer OTHER, MEDICAID, SELFPAY | PROVIDERS: Admitting Provider Hospitalist; Emergency Provider Emergency Medicine; PCP Internal Medicine; Visit Provider Hospitalist | DX: E10.22 Type 1 diabetes mellitus with diabetic chronic kidney disease (principal); N18.6 End stage renal disease; E10.649 Type 1 diabetes mellitus with hypoglycemia without coma; Z99.2 Dependence on renal dialysis; D64.9 Anemia, unspecified | CPT/HCPCS: 99223; 99233; 99239 ==